=== PATIENT | male | born 1975 | race Caucasian/White ===

== ENCOUNTER 2016-12-24 09:48 | Emergency (ER) | payer OTHER ==
[2016-12-24 10:00] VITALS: BMI 26.4
--- NOTE | 2016-12-24 10:53 | PDOC ---
History of Present Illness - General History Source: Patient Exam Limitations: No Limitations - History of Present Illness Initial Comments: 12/24/16 11:03 The patient is a 41 year old male with past medical history of seizure disorder who presents to the ED s/p seizure like activity that was witnessed yesterday. As per patients family, the patient was found in bed clenched up, biting his tongue and had urinary incontinence as well which this episode lasted a couple of minutes. Following the episode, the patient was noted to be postictal for about 2 hours following the episode. Since then, the patient has experienced decreased sensation in his right upper/lower extremities. The patient states he stopped taking his Keppra two months ago and had experienced a questionable seizure two months ago which he did not follow up with. He also complains of becoming short of breath when lying down which has been occurring for the past two months. The patient denies any fever, chills, nausea, vomiting, diarrhea, cough, chest pain, or urinary symptoms. <Hui Mayers - Last Filed: 12/24/16 11:54> - General History Source: Patient, Family Exam Limitations: No Limitations <Luca Mena - Last Filed: 12/27/16 08:18> - General Chief Complaint: Shortness of Breath Stated Complaint: HEADACHES Time Seen by Provider: 12/24/16 10:25 Past History <Hui Mayers - Last Filed: 12/24/16 11:54> - Past Medical History Seizures: Yes - Immunization History Immunization Up to Date: Yes - Psycho/Social/Smoking Cessation Hx Anxiety: No Suicidal Ideation: No Smoking History: Never smoked Have you smoked in the past 12 months: No Information on smoking cessation initiated: No Hx Alcohol Use: No Drug/Substance Use Hx: No Substance Use Type: None Hx Substance Use Treatment: No <Luca Mena - Last Filed: 12/27/16 08:18> - Past Medical History Allergies/Adverse Reactions: Allergies Allergy/AdvReac Type Severity Reaction Status Date / Time No Known Allergies Allergy Verified 12/24/16 10:00 Home Medications: Ambulatory Orders Levetiracetam [Keppra -] 750 mg PO BID #60 tablet 12/24/16 Levetiracetam [Keppra -] 750 mg PO BID #84 tablet 12/24/16 Naproxen [Naprosyn -] 500 mg PO BID PRN #20 tablet 12/24/16 Review of Systems - Review of Systems Able to Perform ROS?: Yes Comments:: 12/24/16 11:03 GENERAL/CONSTITUTIONAL: No fever or chills. No weakness. HEAD, EYES, EARS, NOSE AND THROAT: No change in vision. No ear pain or discharge. No sore throat. CARDIOVASCULAR: No chest pain or shortness of breath. RESPIRATORY: Present: SOB while laying down No cough, wheezing, or hemoptysis. GASTROINTESTINAL: No nausea, vomiting, diarrhea or constipation. GENITOURINARY: No dysuria, frequency, or change in urination. MUSCULOSKELETAL: No joint or muscle swelling or pain. No neck or back pain. SKIN: No rash NEUROLOGIC: Present: seizure No headache, vertigo, or change in strength/sensation. ENDOCRINE: No increased thirst. No abnormal weight change. HEMATOLOGIC/LYMPHATIC: No anemia, easy bleeding, or history of blood clots. ALLERGIC/IMMUNOLOGIC: No hives or skin allergy. All Other Systems: Reviewed and Negative <Hui Mayers - Last Filed: 12/24/16 11:54> *Physical Exam - Vital Signs Last Vital Signs Temp Pulse Resp BP Pulse Ox 98.2 F 83 18 135/81 98 12/24/16 09:54 12/24/16 09:54 12/24/16 09:54 12/24/16 09:54 12/24/16 10:58 - Physical Exam Comments: 12/24/16 11:04 GENERAL: Awake, alert, and fully oriented, in no acute distress HEAD: No signs of trauma EYES: PERRLA, EOMI, sclera anicteric, conjunctiva clear ENT: Auricles normal inspection, hearing grossly normal, nares patent, oropharynx clear without exudates. Moist mucosa NECK: Normal ROM, supple, no lymphadenopathy, JVD, or masses LUNGS: Breath sounds equal, clear to auscultation bilaterally. No wheezes, and no crackles HEART: Regular rate and rhythm, normal S1 and S2, no murmurs, rubs or gallops ABDOMEN: Soft, nontender, normoactive bowel sounds. No guarding, no rebound. No masses EXTREMITIES: Normal range of motion, no edema. No clubbing or cyanosis. No cords, erythema, or tenderness NEUROLOGICAL: Decreased sensation of RUE and RLE, 5/5 strength bilaterally upper and lower extremities, no pronator drift, No dysmetria, dysarthria. Cranial nerves II through XII grossly intact. Normal speech, normal gait SKIN: Warm, Dry, normal turgor, no rashes or lesions noted. <Hui Mayers - Last Filed: 12/24/16 11:54> - Vital Signs Last Vital Signs Temp Pulse Resp BP Pulse Ox 98.2 F 83 18 135/81 97 12/24/16 09:54 12/24/16 09:54 12/24/16 09:54 12/24/16 09:54 12/24/16 09:54 - Physical Exam Comments: 12/27/16 08:18 CORRECTION TO SCRIBE NOTE: CN II-XII intact, not grossly intact. <Luca Mena - Last Filed: 12/27/16 08:18> NIH Stroke Scale - Initial Evaluation Level of consciousness: Alert Ask patient the month and their age: Answers both correctly Ask patient to open & close eyes; make fist and let go: Obeys both correctly Best gaze (horizontal eye movement): Normal Visual field testing: No visual field loss Facial paresis (Show teeth/raise eyebrows/close eyes tight): Normal symmetrical movement Motor Function: Left Arm: Normal Motor Function: Right Arm: Normal (extends arm 90 (or 45) degrees for 10 seconds without drift Motor Function: Left Leg: Normal (extends leg 30 degrees for 5 seconds without drift) Motor Function: Right Leg: Normal (extends leg 30 degrees for 5 seconds without drift) Limb Ataxia: No ataxia Sensory(Use pinprick test arms,legs,trunk,face/side to side): Mild to moderate decrease in sensation Best language (Describe picture, name items, read sentences): No Aphasia Dysarthria (read several words): Normal articulation Extinction and Inattention: No abnormality - Total Score NIH Stroke Scale Score: 1 <Luca Mena - Last Filed: 12/27/16 08:18> Heart Score/ECG Review #1 ECG reviewed & interpreted by me at: 11:00 12/24/16 11:47 NSR 62, no std/kendall, TWI III, normal axis, normal intervals, QTC 416 msec <Luca Mena - Last Filed: 12/27/16 08:18> Critical Care Time/MDM Note - Medical Decision Making Note: 12/24/16 11:06 Documentation prepared by Hui Mayers, acting as medical biller coder for Luca Mena MD. 12/24/16 11:[address] as reviewed by Dr. Russell reports no acute intracranial pathology. 12/24/16 11:54 Chest X-ray as reviewed by Dr. Russell reports no active pulmonary disease. <Hui Mayers - Last Filed: 12/24/16 11:54> - Medical Decision Making Note: 12/24/16 10:50 A portion of this note was documented by scribe services under my direction. I have reviewed the details of the note, within reason, and agree with the documentation with the following case summary and management plan written by me. Patient treated in the ED. Nursing notes are reviewed and incorporated into the medical decision-making. Vital signs reviewed. Peripheral IV access obtained by the nurse, laboratory studies are drawn and sent, reviewed and interpreted by myself. Vital Signs Temp Pulse Resp BP Pulse Ox 98.2 F 83 18 135/81 97 12/24/16 09:54 12/24/16 09:54 12/24/16 09:54 12/24/16 09:54 12/24/16 09:54 41-year-old male with history of seizure disorder previously on 750 mg of Keppra twice a day presents to the emergency department for 2 complaints. Patient states that he self discontinued himself from Keppra 2 months ago stating that he has not had a seizure. There is a question we'll seizure episode 2 months ago which she did not follow up with since he discontinued medications. Yesterday, patient's family noted that he was in bed clenching with tongue biting and urinary incontinence and seizure-like behavior that lasted for several minutes. He appeared postictal for 2 hours afterwards. He denies any headaches or shortness of breath but now complains of right upper extremity and right lower extremity decreased sensation. Denies other neurological symptoms. Patient also endorses that when he sleeps that he feels short of breath and this has been occurring for last 2 months. But this occurs when his neck is flexed onto his chest. Denies chest pain. I suspect the patient likely had a seizure but given the persistence of neurological symptoms, we'll obtain a head CT and consult neurology. Patient shortness of breath may be more mechanical than coronary or pulmonary. However, we'll obtain an EKG and a chest x-ray. Observe and reassess. 12/24/16 13:09 CBC, BMP 12/24/16 10:45 12/24/16 10:45 CMP Sodium 140 mmol/L (136-145) 12/24/16 10:45 Potassium 4.2 mmol/L (3.5-5.1) 12/24/16 10:45 Chloride 103 mmol/L (98-107) 12/24/16 10:45 Carbon Dioxide 32 mmol/L (21-32) 12/24/16 10:45 Anion Gap 5 (8-16) L 12/24/16 10:45 BUN 13 mg/dL (7-18) D 12/24/16 10:45 Creatinine 0.8 mg/dL (0.7-1.3) 12/24/16 10:45 Creat Clearance w eGFR > 60 (>60) 12/24/16 10:45 Random Glucose 95 mg/dL (74-106) 12/24/16 10:45 Calcium 8.6 mg/dL (8.5-10.1) 12/24/16 10:45 Total Bilirubin 0.8 mg/dL (0.2-1.0) D 12/24/16 10:45 AST 52 U/L (15-37) H D 12/24/16 10:45 ALT 39 U/L (12-78) 12/24/16 10:45 Alkaline Phosphatase 70 U/L (45-117) 12/24/16 10:45 Creatine Kinase 1821 IU/L (39-308) H D 12/24/16 10:45 CK-MB (CK-2) 11.095 ng/ml (0.5-3.6) H 12/24/16 10:45 CK-MB (CK-2) Rel Index 0.6 % (0.0-5.0) 12/24/16 10:45 Troponin I < 0.02 ng/ml (0.00-0.05) 12/24/16 10:45 Total Protein 7.0 g/dl (6.4-8.2) 12/24/16 10:45 Albumin 3.7 g/dl (3.4-5.0) 12/24/16 10:45 12/24/16 13:[address] and chest xray reviewed. no acute findings. I had spoken to and discussed the case with Dr. Meyer. Though somewhat atypical , the numbness may potentially represent Rehan's paralysis. He recommends that we initiate his prior dosage of 750 mg Keppra twice a day. He recommends the patient follow-up in his office as an outpatient. I discussed this option with the patient agrees with the plan. Patient feels comfortable going home. Discharge diagnosis: Seizure I discussed the physical exam findings, ancillary test results and final diagnoses with the patient. I answered all of the patient's questions. The patient was satisfied with the care received and felt comfortable with the discharge plan and treatment plan. The patient will call their primary care physician within 24 hours to arrange follow-up and will return to the Emergency Department with any new, persistant or worsening symptoms. <Luca Mena - Last Filed: 12/27/16 08:18> Discharge Disposition <Hui Mayers - Last Filed: 12/24/16 11:54> - Discharge Dispostion Admit: No <Luca Mena - Last Filed: 12/27/16 08:18> - Diagnosis Seizure - Discharge Dispostion Disposition: HOME - Prescriptions Prescriptions: Levetiracetam [Keppra -] 750 mg PO BID #84 tablet Levetiracetam [Keppra -] 750 mg PO BID #60 tablet Naproxen [Naprosyn -] 500 mg PO BID PRN #20 tablet PRN Reason: Pain - Referrals Referrals: Jose Kong MD [Non Staff, Medical] - Yash Meyer DO [Staff Physician] - - Patient Instructions Printed Discharge Instructions: DI for Seizure Disorder -- Adult Additional Instructions: Please take 750 mg Keppra twice a day. Follow-up with the neurologist. It is very important that you make an appointment and schedule it. Call today.
[2016-12-24 10:57] LABS: BASOPHIL 1.2 % (0-2.0); MCH 29.6 pg (25.7-33.7); MCHC 34.2 g/dl (32.0-35.9); MEAN CELL VOLUME 86.7 fl (80-96); MEAN PLT VOLUME 8.2 fl (7.5-11.1); NEUTROPHILS 62.7 % (42.8-82.8); PLATELET COUNT 293 K/MM3 (134-434); RDW 12.6 % (11.9-15.9); WHITE BLOOD COUNT 8.5 K/mm3 (4.0-10.0)
[2016-12-24 11:20] LABS: ALBUMIN 3.7 g/dl (3.4-5.0); ANION GAP 5 (8-16); BILIRUBIN,TOTAL 0.8 mg/dL (0.2-1.0); CALCIUM 8.6 mg/dL (8.5-10.1); CO2 32 mmol/L (21-32); CREATININE 0.8 mg/dL (0.7-1.3); GLUCOSE,RANDOM 95 mg/dL (74-106); SGOT/AST 52 U/L (15-37); SGPT/ALT 39 U/L (12-78)
[2016-12-24 11:31] LABS: ALK PHOS 70 U/L (45-117); TROPONIN I < 0.02 ng/ml (0.00-0.05)
[2016-12-24 12:07] LABS: CK INDEX FOR DOBBS 0.6 % (0.0-5.0)
--- NOTE | 2016-12-24 12:26 | EKG ---
Test Reason : Blood Pressure : / mmHG Vent. Rate : 062 BPM Atrial Rate : 062 BPM P-R Int : 182 ms QRS Dur : 090 ms QT Int : 412 ms P-R-T Axes : 036 027 023 degrees QTc Int : 418 ms NORMAL SINUS RHYTHM NORMAL ECG WHEN COMPARED WITH ECG OF 09-MAY-2016 19:45, NO SIGNIFICANT CHANGE WAS FOUND CORELATE CLINICALLY. Confirmed by LIVE BLANDON MD ([id number]) on 12/24/2016 12:26:07 PM Referred By: Confirmed By:LIVE BLANDON MD
[2016-12-24] MEDS ORDERED: KETOROLAC TROMETHAMINE 30 MG/1 ML VIAL IVPUSH ONE (13:08)
[2016-12-24] MEDS ORDERED: levETIRAcetam 500 MG TABLET (FP) PO ONE (13:08)
[2016-12-24] MEDS ORDERED: KETOROLAC TROMETHAMINE 30 MG/1 ML VIAL ONE (13:16)
[2016-12-24 13:32] VITALS: BP 120/71; PULSE 81; TEMP 98.1
== END 2016-12-24 13:32 | disposition home or self-care (01) ==
LOC: JER 09:48
PROC: 3E0333Z Introduction of Anti-inflammatory into Peripheral Vein, Percutaneous Approach (ICD-10-PCS; principal; 2016-12-24)
DX: G40.909 Epilepsy, unspecified, not intractable, without status epilepticus (principal); Z91.14 Patient's other noncompliance with medication regimen
CPT/HCPCS: 36415; 70450-TC; 71010-TC; 80053; 82550; 82553; 84484; 85025; 93005; 93010; 96374; 99283-25

== ENCOUNTER 2017-07-01 02:12 | Inpatient (IN) | payer BC, OTHER ==
[2017-07-01 02:29] VITALS: BMI 23.0
--- NOTE | 2017-07-01 03:16 | PDOC ---
History of Present Illness - General Chief Complaint: Back Pain Stated Complaint: BACK PAIN - History of Present Illness Initial Comments: Mr Reyes is a pleasant 42yo [place] M with a PMHx of epilepsy who presents w / lower back pain. The pain is located in the paraspinal region and radiates down into the gluteal area bilaterally. The pain started a couple of hours ago while the patient was essentially resting. Progressed gradually. Currently the patient has pain with bilateral leg flexion. He has taken a one time ?unknown dose of Tylenol without relief. He denies localized trauma. Denies heavy lifting. 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 Denies dysuria, frequency, urgency, personal or family history of kidney disease. Denies neurologic complaints such as incontinence, numbness/tingling, weakness. Past History - Past Medical History Allergies/Adverse Reactions: Allergies Allergy/AdvReac Type Severity Reaction Status Date / Time No Known Allergies Allergy Verified 07/01/17 02:29 Home Medications: Ambulatory Orders Levetiracetam [Keppra -] 750 mg PO BID #84 tablet 12/24/16 Seizures: Yes - Immunization History Immunization Up to Date: Yes - Suicide/Smoking/Psychosocial Hx Smoking History: Never smoked Have you smoked in the past 12 months: No Information on smoking cessation initiated: No Hx Alcohol Use: No Drug/Substance Use Hx: No Substance Use Type: None Hx Substance Use Treatment: No *Physical Exam - Vital Signs Last Vital Signs Temp Pulse Resp BP Pulse Ox 98.4 F 80 18 136/82 100 07/01/17 02:28 07/01/17 02:28 07/01/17 02:28 07/01/17 02:28 07/01/17 02:28 - Physical Exam Comments: GEN: AAOx3, NAD, Lying in bed. Pt refused to flex back and walk due to pain HEENT: PERRLA, EOMi CV: S1, S2, RRR LUNG: Anterior lungs are clear bilaterally ABD: Soft, NT, no suprapubic tenderness MSK: 5/5 muscular strength. Active leg flexion bilaterally elicits lower back tenderness. No spinal tenderness NEURO: CN 2-12 intact, no sensation or MSK deficits Medical Decision Making - Medical Decision Making 42yo M who presents w/ bilateral LBP. Likely musculoskeletal due to the distribution of the pain. Will rule out urinary causes. Will give Percocet and reassess. Will hold off on imaging, unlikely fracture. 07/01/17 06:36 Patient has received Percocet x2, Motrin 800mg x1, Valium 5mg x1. Pain is unchanged. Pt not able to sit up or walk. We will rule out unlikely causes of lower back pain such as intra-abdominal/retroperitoneal causes w/ CT abd/pelvis w/ contrast. If patient is still unable to ambulate with multiple medications, will consider admission. *DC/Admit/Observation/Transfer Diagnosis at time of Disposition: Lower back pain Qualifiers: Chronicity: acute Back pain laterality: bilateral Sciatica presence: without sciatica Qualified Code(s): M54.5 - Low back pain - Referrals Referrals: Sarah Uribe MD [Primary Care Provider] - - Patient Instructions - Post Discharge Activity
--- NOTE | 2017-07-01 03:56 | PDOC ---
Attending Attestation - Resident Resident Name: Jesse Castano - ED Attending Attestation I have performed the following: I have examined & evaluated the patient, The case was reviewed & discussed with the resident, I agree w/resident's findings & plan, Exceptions are as noted - HPI HPI: 07/01/17 03:54 42yoM presents w/ gradual onset of bilateral lumbar area pain radiating to the gluteal muscles x last night. Did not attempt any pain control at home. Pain is not colicky or intermittent, never had this before. pmhx per res note psh per res note allerg nkda Vital Signs - 24 hr 07/01/17 02:28 Temperature 98.4 F Pulse Rate 80 Respiratory 18 Rate Blood Pressure 136/82 O2 Sat by Pulse 100 Oximetry (%) NAD RRR CTABL mild diffuse tendreness lateral lumbar areas b/l gait WNL. 42yoM w/ acute musculoskeletal back pain - urine - pain control - DC. - Physicial Exam PE: 07/01/17 03:56 see above - Medical Decision Making 07/01/17 03:56 see above
[2017-07-01] MEDS ORDERED: IBUPROFEN 400 MG TABLET (FP) PO ONE ×2 (04:11→04:16)
[2017-07-01 05:01] LABS: URINE APPEARANCE CLEAR; URINE BILIRUBIN NEGATIVE (NEGATIVE); URINE BLOOD NEGATIVE (NEGATIVE); URINE COLOR YELLOW; URINE GLUCOSE (UA) NEGATIVE (NEGATIVE); URINE KETONE NEGATIVE (NEGATIVE); URINE LEUK ESTERASE NEGATIVE (NEGATIVE); URINE NITRITE NEGATIVE (NEGATIVE); URINE PROTEIN NEGATIVE (NEGATIVE); URINE UROBILINOGEN NEGATIVE mg/dL (0.2-1.0)
[2017-07-01] MEDS ORDERED: diazePAM 5 MG TABLET PO ONE (05:24)
[2017-07-01] MEDS ORDERED: diazePAM 5 MG TABLET ONE (05:45)
[2017-07-01 07:04] LABS: EOS % 7.5 % (0-4.5); HEMATOCRIT 44.2 % (35.4-49); HEMOGLOBIN 14.6 GM/dL (11.7-16.9); LYMPH % 25.4 % (8-40); MCHC 32.9 g/dl (32.0-35.9); MEAN CELL VOLUME 88.2 fl (80-96); MEAN PLT VOLUME 8.6 fl (7.5-11.1); MONO % 14.5 % (3.8-10.2); NEUT % 52.6 % (42.8-82.8); PLATELET COUNT 300 K/MM3 (134-434); RBC 5.01 M/mm3 (4.00-5.60); RDW 12.7 % (11.9-15.9)
[2017-07-01 07:30] LABS: ALBUMIN 3.6 g/dl (3.4-5.0); ALK PHOS 84 U/L (45-117); ANION GAP 6 (8-16); BILIRUBIN,TOTAL 0.5 mg/dL (0.2-1.0); BLOOD UREA NITROGEN 17 mg/dL (7-18); CALCIUM 8.2 mg/dL (8.5-10.1); CHLORIDE 105 mmol/L (98-107); CO2 29 mmol/L (21-32); CREATININE 0.7 mg/dL (0.7-1.3); GLUCOSE,RANDOM 85 mg/dL (74-106); POTASSIUM 4.2 mmol/L (3.5-5.1); SGOT/AST 19 U/L (15-37); SGPT/ALT 34 U/L (12-78); SODIUM 140 mmol/L (136-145); TOT PROT 6.5 g/dl (6.4-8.2)
--- NOTE | 2017-07-01 07:33 | PDOC ---
*Physical Exam - Vital Signs Last Vital Signs Temp Pulse Resp BP Pulse Ox 98.4 F 80 18 136/82 100 07/01/17 02:28 07/01/17 02:28 07/01/17 02:28 07/01/17 02:28 07/01/17 02:28 - Physical Exam Comments: 07/01/17 07:33 GENERAL: Awake, alert, and fully oriented, in no acute distress HEAD: No signs of trauma, normocephalic, atraumatic EYES: PERRLA, EOMI, sclera anicteric, conjunctiva clear ENT: Hearing grossly normal, nares patent, oropharynx clear without exudates. Moist mucosa NECK: Normal ROM, no JVD, or masses LUNGS: No distress, speaks full sentences, clear to auscultation bilaterally HEART: Regular rate and rhythm, normal S1 and S2, no murmurs, rubs or gallops, peripheral pulses normal and equal bilaterally. ABDOMEN: Soft, nontender, normoactive bowel sounds. No guarding, no rebound. No masses EXTREMITIES : Normal inspection, Normal range of motion, no edema. No clubbing or cyanosis. NEUROLOGICAL: Cranial nerves II through XII grossly intact. Normal speech, normal gait, no focal sensorimotor deficits SKIN: Warm, Dry, normal turgor, no rashes or lesions noted. ED Treatment Course - LABORATORY CBC & Chemistry Diagram: 07/01/17 06:39 07/01/17 06:39 - ADDITIONAL ORDERS Additional order review: Laboratory Results 07/01/17 04:52 Urine Color Yellow Urine Appearance Clear Urine pH 5.0 Ur Specific [place] 1.027 Urine Protein Negative Urine Glucose (UA) Negative Urine Ketones Negative Urine Blood Negative Urine Nitrite Negative Urine Bilirubin Negative Urine Urobilinogen Negative Ur Leukocyte Esterase Negative 07/01/17 06:39 RBC 5.01 MCV 88.2 MCHC 32.9 RDW 12.7 MPV 8.6 Neutrophils % 52.6 Lymphocytes % 25.4 Monocytes % 14.5 H Eosinophils % 7.5 H D Basophils % 0.0 - Medications Given in the ED: ED Medications Discontinued Medications Generic Name Dose Route Start Last Admin Trade Name Freq PRN Reason Stop Dose Admin Diazepam 5 mg 07/01/17 05:24 07/01/17 05:50 Valium - PO 07/01/17 05:25 5 mg ONCE ONE Administration Ibuprofen 800 mg 07/01/17 04:11 07/01/17 04:23 Motrin - PO 07/01/17 04:12 800 mg ONCE ONE Administration Oxycodone/Acetaminophen 2 combo 07/01/17 03:03 07/01/17 03:10 Percocet 5/325 - PO 07/01/17 03:04 2 combo ONCE ONE Administration Medical Decision Making - Medical Decision Making 07/01/17 07:30 Mr Reyes is a 42yo M with a h/ o epilepsy who presents with radiating, lumbar paraspinal back pain 2 hours [employer]. Pain worsened w/ bilateral leg flexion. Denies trauma or heavy lifting. Denies CP, SOB, N/V, F/C, dysuria, frequency, urgency, weakness, sensory changes, urinary complaints, or bowel/ abdominal complaints. Patient hemodynamically stable with no focal deficits on physical exam. Received handoff from Dr. Castano. ED Course noteable for Percocet x2, Motrin 800mg x1, Valium 5mg x1, with continued/unresolved pain. Pt. complains that he is not able to sit up or walk. CT AP pending. Possible admission for pain management/intractable back pain. ED Course: CT AP: Right renal cyst w/no evidence of hydroureteronephrosis, Ileus, and non occlusive splenic thrombus. 07/01/17 09:39 Back Pain not improved. Patient to be admitted to med/surg obs for further management. *DC/Admit/Observation/Transfer Diagnosis at time of Disposition: Lower back pain Qualifiers: Chronicity: acute Back pain laterality: bilateral Sciatica presence: without sciatica Qualified Code(s): M54.5 - Low back pain - Referrals Referrals: Sarah Uribe MD [Primary Care Provider] - - Patient Instructions - Post Discharge Activity
--- NOTE | 2017-07-01 11:08 | HP ---
CHIEF COMPLAINT: back pain PCP: Dr. Sarah Monzon ([address] [facility] - [phone]) HISTORY OF PRESENT ILLNESS: 42 y/o M w/PMH of epilepsy presents to the ER with back pain that started at approximately 4:30 PM yesterday afternoon without any inciting factors. Pt states it started on his left lower back and progressed to in a band like fashion where his belt would be to his left lower back to his lower back and to his right lower back and the intensity of the pain increased to 10/10 in an unknown period of time but pt thinks it took approximately 2 hours for the pain to reach 10/10 and has been constant since then. Pain is worsened with movement and pt has difficulty walking due to pain. This is the first time this has happened to him. He tried taking tylenol but it did not bring any relief. Pt denies any trauma or heavy lifting. He denies any parasthesias, focal weakness, loss of sensation, bowel or bladder incontinence, headache, neck pain, fevers, chills, nausea, vomiting, chest pain, sob, abd pain, muscle spasms, blood in urine, blood in stool, lower extremity edema, constipation, recent travel, sick contacts. Last BM was yesterday at approximately 3 pm and stool was normal at the time. Despite being given ibuprofen, percocet x2, valium in ER pt states pain is only slightly improved. ER course was notable for: (1) Ibuprofen 800mg, Oxy/Tylenol 5-325 x2. Valium 5 mg (2) CT Abd/Pelvis w/Contrast (3) Recent Travel: denies PAST MEDICAL HISTORY: epilepsy PAST SURGICAL HISTORY: none Social History: Smoking:denies Alcohol:rarely (1 beer at large social event) Drugs: denies Family History: Mother: HTN. Denies any cancer history in family Allergies No Known Allergies Allergy (Verified 07/01/17 02:29) HOME MEDICATIONS: Home Medications Medication Instructions Recorded Levetiracetam [Keppra -] 750 mg PO BID #84 tablet 12/24/16 REVIEW OF SYSTEMS CONSTITUTIONAL: Absent: fever, chills HEENT: Absent: rhinorrhea, nasal congestion CARDIOVASCULAR: Absent: chest pain, peripheral edema RESPIRATORY: Absent: cough, shortness of breath, dyspnea with exertion GASTROINTESTINAL: Absent: abdominal pain, nausea, vomiting, diarrhea, constipation, melena, hematochezia GENITOURINARY: Absent: dysuria, hematuria MUSCULOSKELETAL: +back pain, band like across back where belt sits. Absent: neck pain NEUROLOGIC: Absent: headache, focal weakness or paresthesias, bladder or bowel incontinence PHYSICAL EXAMINATION Vital Signs - 24 hr 07/01/17 07/01/17 02:28 07:52 Temperature 98.4 F Pulse Rate 80 Pulse Rate [ 80 Left] Respiratory 18 16 Rate Blood Pressure 136/82 Blood Pressure 115/80 [Arm] O2 Sat by Pulse 100 96 Oximetry (%) GENERAL: Awake, alert, and fully oriented, unable to sit up in bed due to pain. HEAD: Normal with no signs of trauma. EYES: extraocular movements intact, sclera anicteric, conjunctiva clear. No lid lag. EARS, NOSE, THROAT: Ears normal, nares patent NECK: Normal range of motion, supple LUNGS: Breath sounds equal, clear to auscultation bilaterally. No wheezes, and no crackles. No accessory muscle use. HEART: Regular rate and rhythm, normal S1 and S2 without murmur, rub or gallop. ABDOMEN: Soft, nontender, not distended, normoactive bowel sounds, no guarding, no rebound, no masses. MUSCULOSKELETAL: Pain in back with straight leg raise at approx 45 degrees bilaterally. Kernigs negative. Mild pain with palpation at left lower back/ flank where belt is. no muscle spasms palpated on lower back. UPPER EXTREMITIES: No peripheral edema. LOWER EXTREMITIES: warm, well-perfused. No calf tenderness. No peripheral edema. NEUROLOGICAL: B/L sensation equal and intact to light touch in lower extremities. Normal speech. Gait not observed. PSYCHIATRIC: Cooperative. Good eye contact. Appropriate mood and affect. SKIN: Warm, dry Laboratory Results - last 24 hr 07/01/17 07/01/17 07/01/17 04:52 06:39 06:39 WBC 10.0 RBC 5.01 Hgb 14.6 Hct 44.2 MCV 88.2 MCH 29.0 MCHC 32.9 RDW 12.7 Plt Count 300 MPV 8.6 Neutrophils % 52.6 Lymphocytes % 25.4 Monocytes % 14.5 H Eosinophils % 7.5 H D Basophils % 0.0 Sodium 140 Potassium 4.2 Chloride 105 Carbon Dioxide 29 Anion Gap 6 L BUN 17 D Creatinine 0.7 Creat Clearance w eGFR > 60 Random Glucose 85 Calcium 8.2 L Total Bilirubin 0.5 D AST 19 D ALT 34 Alkaline Phosphatase 84 Total Protein 6.5 Albumin 3.6 Urine Color Yellow Urine Appearance Clear Urine pH 5.0 Ur Specific [place] 1.027 Urine Protein Negative Urine Glucose (UA) Negative Urine Ketones Negative Urine Blood Negative Urine Nitrite Negative Urine Bilirubin Negative Urine Urobilinogen Negative Ur Leukocyte Esterase Negative Imaging: CT abd/pelvis w/contrast 07/01/17: Impression: 1. Tiny R renal cysts. No evidence of hydroureteronephrosis or stones bilaterally. 2. Linear filling defect in the L splenic vein suggestive of non-occulsive thrombus. 3. Fluid filled slightly dilated mid and distal bowel loops likely secondary to ileus. CLose f/u needed to r/o low-grade obstruction 4. No evidence of acute diverticulitis ASSESSMENT/PLAN: 42 y/o M w/PMH of epilepsy presents to the ER with back pain. Admitted for observation due to intractable back pain. -Intractable back pain -Pt with back pain despite ibuprofen 800 mg, percocet 5/325 x2, valium 5 mg po in ER -CT abd/pelvis does not show any etiology of back pain -Control pain with morphine 2mg iv q4h. Downgrade to PO meds when possible. -cyclobenzaprine 10 mg PO q8h PRN for pain. Will give one dose now. -Neuro checks for LE sensation, strength, and bowel/bladder incontinence -Will get Pelvis, Lumbar/Sacral XR for now. Consider MRI back/lumbar spine if no improvement -Physical Therapy -Hx of epilepsy -c/w keppra 750 mg po bid -DVT ppx -Heparin 5000 units SQ TID -FEN -No fluids -monitor electrolytes, replete as needed. -Regular diet -Dispo: Monitor in obs on m/s Visit type - Emergency Visit Emergency Visit: Yes ED Registration Date: 07/01/17 Care time: The patient presented to the Emergency Department on the above date and was hospitalized for further evaluation of their emergent condition. - New Patient This patient is new to me today: Yes Date on this admission: 07/01/17 - Critical Care Critical Care patient: No
[2017-07-01 12:06] LABS: MAGNESIUM 2.1 mg/dL (1.8-2.4); PHOSPHOROUS 4.9 mg/dL (2.5-4.9)
[2017-07-01] MEDS ORDERED: MORPHINE SULFATE 10 MG/1 ML *VIAL IVPUSH PRN (12:09)
[2017-07-01] MEDS ORDERED: CYCLOBENZAPRINE HCL 10 MG TABLET (FP) PO PRN (12:10)
--- NOTE | 2017-07-01 12:13 | PN ---
Teaching Attending Note Name of Resident: Tommy Moore ATTENDING PHYSICIAN STATEMENT I saw and evaluated the patient. I reviewed the resident's note and discussed the case with the resident. I agree with the resident's findings and plan as documented. SUBJECTIVE: This is a 42 year old man with a history of seizure disorder who comes to the ER complaining of back pain since yesterday afternoon. The pain started in his left lower back and then progressed across his lower back. It does not radiate down either leg. He has no numbness or weakness of his legs. He has been having difficulty walking. He has no history of back pain. He has not been doing any heavy lifting or other strenuous activity. OBJECTIVE: Vital Signs Period Temp Pulse Resp BP Sys/Madrid Pulse Ox Last 24 Hr 98.4 F 80-80 16-18 115-136/80-82 96-100 HEART: S1S2, RRR LUNGS: Clear ABDOMEN: Soft, non-tender, non-distended, normal BS EXTREMITIES: No edema. Straight leg raise (+) at 45 deg bilaterally BACK: No spinal/paraspinal tenderness. (+) tenderness over left SI joint Laboratory Tests 07/01/17 07/01/17 07/01/17 04:52 06:39 06:39 WBC 10.0 RBC 5.01 Hgb 14.6 Hct 44.2 MCV 88.2 MCH 29.0 MCHC 32.9 RDW 12.7 Plt Count 300 MPV 8.6 Neutrophils % 52.6 Lymphocytes % 25.4 Monocytes % 14.5 H Eosinophils % 7.5 H D Basophils % 0.0 Sodium 140 Potassium 4.2 Chloride 105 Carbon Dioxide 29 Anion Gap 6 L BUN 17 D Creatinine 0.7 Creat Clearance w eGFR > 60 Random Glucose 85 Calcium 8.2 L Phosphorus 4.9 D Magnesium 2.1 Total Bilirubin 0.5 D AST 19 D ALT 34 Alkaline Phosphatase 84 Total Protein 6.5 Albumin 3.6 Urine Color Yellow Urine Appearance Clear Urine pH 5.0 Ur Specific [place] 1.027 Urine Protein Negative Urine Glucose (UA) Negative Urine Ketones Negative Urine Blood Negative Urine Nitrite Negative Urine Bilirubin Negative Urine Urobilinogen Negative Ur Leukocyte Esterase Negative Home Medications Medication Instructions Recorded Levetiracetam [Keppra -] 750 mg PO BID #84 tablet 12/24/16 ASSESSMENT AND PLAN: This is a 42 year old man with a history of seizure disorder who presented to the ED with acute onset of low back pain yesterday. 1. Acute low back pain, possible sacroiliitis - Pain control with NSAIDs, muscle relaxant - Physical therapy - X-rays of LS-spine, pelvis 2. Seizure disorder - Estefania Randhawa
[2017-07-01] MEDS ORDERED: CYCLOBENZAPRINE HCL 10 MG TABLET (FP) PO ONE (12:30)
[2017-07-01] MEDS: HEPARIN NA (PORCINE) 5,000 UNITS/ML 1ML VIAL SQ SCH ×2 (13:59→21:17)
[2017-07-01] MEDS ORDERED: FLU VACCINE QUAD 60 MCG/0.5 ML (MDV 17-18) IM ONE (15:32)
[2017-07-01] MEDS: levETIRAcetam 250 MG TABLET (FP) PO SCH (21:16)
[2017-07-02] MEDS: HEPARIN NA (PORCINE) 5,000 UNITS/ML 1ML VIAL SQ SCH ×3 (05:48→22:58)
[2017-07-02] MEDS: levETIRAcetam 250 MG TABLET (FP) PO SCH ×2 (09:48→22:56)
[2017-07-02] MEDS ORDERED: DOCUSATE SODIUM 100 MG CAPSULE (FP) PO PRN (10:02)
[2017-07-02] MEDS ORDERED: SENNOSIDES 8.6MG TABLET (FP) PO PRN ×2 (10:05→19:55)
[2017-07-02] MEDS ORDERED: METHYL SALICYLATE/MENTHOL OINT 30 GM TUBE TP SCH (10:15)
--- NOTE | 2017-07-02 10:26 | CON.GI ---
Consult Consult Specialty:: GI Reason for Consultation:: Splenic vein thrombosis, accidental finding - History of Present Illness History of Present Illness: [facility] [employer] #[id number] A 42 yom with hx of sizujose, on keppra admitted with severe lower back pain radiating to b/l LE w/o obvious neurological deficits. No trauma, or significant physical ectivities reported. lumbar and hip XR revealed no abnormalities. CT A/P with contrast revealed mild ileus, divetiucolosis, and non -obstructive splenic vein thrombosis. The patient reports no GI-related personal or family history. Denies heavy alcohol use, denies liver, pancrease problems. Denies weight loss, jaundice, fluctuating abdominal girth, altered bowels, blood clots. excessive bruising, bleeding. Denies chronic NSAIDs, other OTC meds, or herbs. Pt's ?mother at bedside - History Source History Provided By: Patient, Medical Record Limitations to Obtaining History: Language Barrier - Past Medical History Gastrointestinal: No: Ascites, Cancer, Constipation, Crohn's Disease, Diverticulitis, Diverticulosis, Esophageal Varices, Gastritis, GERD, GI Bleed, Hemorrhoids, Hiatal Hernia, Inflamatory Bowel Disease, Irritable Bowel Disease, Pancreatitis, Peptic Ulcer Disease, Ulcerative Colitis, Other Hepatobiliary: No: Cirrhosis, Cholelithiasis, Cholecystitis, Choledocholithiasis , Hepatitis A, Hepatitis B, Hepatitis C, Other Heme/Onc: No: Anemia, B12 Deficiency, Bleeding Disorder, Cancer, Current Chemotherapy, Current Radiation Therapy, Hemochromatosis, Hypercoaguable State, Myeloproliferative Synd, Sickle Cell Disease, Sickle Cell Trait, Thrombocytopenia, Other Rheumatology: No: Fibromyalgia, Gout, Lupus, Rheumatoid Arthritis, Sarcoidosis, Vasculitis, Other - Alcohol/Substance Use Hx Alcohol Use: No - Smoking History Smoking history: Never smoked Have you smoked in the past 12 months: No Home Medications - Allergies Allergies/Adverse Reactions: Allergies Allergy/AdvReac Type Severity Reaction Status Date / Time No Known Allergies Allergy Verified 07/01/17 02:29 - Home Medications Home Medications: Ambulatory Orders Levetiracetam [Keppra -] 750 mg PO BID #84 tablet 12/24/16 Family Disease History - Family Disease History Family Disease History: Other: Mother (mild cognitive impairment, kidney stone) Review of Systems Findings/Remarks: As per HPI, H&P Physical Exam-GI Vital Signs: Vital Signs Temperature 98.1 F 07/02/17 06:29 Pulse Rate 66 07/02/17 06:29 Respiratory Rate 20 07/02/17 06:29 Blood Pressure 107/69 07/02/17 06:29 O2 Sat by Pulse Oximetry (%) 96 07/01/17 20:08 Constitutional: Yes: Well Nourished, No Distress, Calm Eyes: Yes: Conjunctiva Clear HENT: Yes: Atraumatic Neck: Yes: Supple Cardiovascular: Yes: Regular Rate and Rhythm Respiratory: Yes: Regular Gastrointestinal Inspection: No: Ascites, Distention ...Auscultate: Yes: Normoactive Bowel Sounds ...Palpate: Yes: Soft. No: Firm/Rigid, Guarding, Mass, Splenomegaly, Tenderness , Tenderness, Epigastium, Tenderness, Rebound Musculoskeletal: Yes: WNL Extremities: Yes: WNL Edema: No Integumentary: Yes: WNL Neurological: Yes: Alert, Oriented Labs: CBC, BMP 07/01/17 06:39 07/01/17 06:39 Laboratory Tests 07/01/17 07/01/17 07/01/17 04:52 06:39 06:39 WBC 10.0 RBC 5.01 Hgb 14.6 Hct 44.2 MCV 88.2 MCH 29.0 MCHC 32.9 RDW 12.7 Plt Count 300 MPV 8.6 Neutrophils % 52.6 Lymphocytes % 25.4 Monocytes % 14.5 H Eosinophils % 7.5 H D Basophils % 0.0 Sodium 140 Potassium 4.2 Chloride 105 Carbon Dioxide 29 Anion Gap 6 L BUN 17 D Creatinine 0.7 Creat Clearance w eGFR > 60 Random Glucose 85 Calcium 8.2 L Phosphorus 4.9 D Magnesium 2.1 Total Bilirubin 0.5 D AST 19 D ALT 34 Alkaline Phosphatase 84 Total Protein 6.5 Albumin 3.6 Urine Color Yellow Urine Appearance Clear Urine pH 5.0 Ur Specific [place] 1.027 Urine Protein Negative Urine Glucose (UA) Negative Urine Ketones Negative Urine Blood Negative Urine Nitrite Negative Urine Bilirubin Negative Urine Urobilinogen Negative Ur Leukocyte Esterase Negative Imaging - Results X-ray: Report Reviewed Cat Scan: Report Reviewed Problem List - Problems (1) Splenic vein thrombosis Code(s): I82.890 - ACUTE EMBOLISM AND THROMBOSIS OF OTHER SPECIFIED VEINS (2) Lower back pain Code(s): M54.5 - LOW BACK PAIN Qualifiers: Chronicity: acute Back pain laterality: bilateral Sciatica presence: without sciatica Qualified Code(s): M54.5 - Low back pain (3) Seizure Code(s): R56.9 - UNSPECIFIED CONVULSIONS Assessment/Plan Significant lower back pain. Accidentally found splenic vein thrombosis w/o on obvious risk factors in the history. May represent idiopathic event, however malignancy, coagulopathy, chronic inflammation, among others, are on differential. No obvious history to suspect hepatic etiology, IBD, pancreatitis, or recurrent colitis/ diverticulitis. No GI symptoms recently, or on this admission. Lumbar and abdomen MRI POLLY, ESR/CRP Viral hep profile, stool hemoccult, AMA, AMS, ALKM-1, PSA, CA19-9, AFP Hem/Onc consultation re additional work up and need for A/C will follow
[2017-07-02] MEDS ORDERED: PANTOPRAZOLE 40 MG TABLET (FP) PO SCH (11:00)
[2017-07-02] MEDS: IBUPROFEN 400 MG TABLET (FP) PO SCH ×3 (11:14→22:56)
[2017-07-02] MEDS ORDERED: CYCLOBENZAPRINE HCL 10 MG TABLET (FP) PO SCH (14:00)
--- NOTE | 2017-07-02 17:35 | PN ---
Teaching Attending Note Name of Resident: Ten Reich ATTENDING PHYSICIAN STATEMENT Time of evaluation: 11:15 AM I saw and evaluated the patient. I reviewed the resident's note and discussed the case with the resident. I agree with the resident's findings and plan as documented. SUBJECTIVE: Patient seen and examined. still with low back pain, reports band like across iliac crest region, reports started as spasm on left flank region that spread in a band like fashion along lower back, more in the left iliac crest/buttock region. no recent trauma or twisting. no leg tingling, numbness, weakness, bowel or urinary complaints. OBJECTIVE: Vital Signs Period Temp Pulse Resp BP Sys/Madrid Pulse Ox Last 24 Hr 97.5 F-98.2 F 66-72 16-20 103-125/57-79 96-96 Intake & Output 06/29/17 06/30/17 07/01/17 07/02/17 23:59 23:59 23:59 23:59 Intake Total 250 Balance 250 Weight 170 lb 0.01 oz general: sitting in bed in no acute distress Musculoskeletal: minimal tenderness over left buttock region (reports more like spasm), no spinal tenderness, SLR bilateral LE 40 degrees with some pain in bilateral buttock region, LE Power 5/5, sensation intact light touch ABdomen: soft, obese, NT throughout, neg Boone's sign, positive bowel sounds Extremities: no edema Active Medications Generic Name Dose Route Start Last Admin Trade Name Freq PRN Reason Stop Dose Admin Cyclobenzaprine HCl 10 mg 07/02/17 14:00 07/02/17 14:08 Flexeril - PO 10 mg TID KEV Administration Docusate Sodium 100 mg 07/02/17 22:00 Colace - PO BID KEV Heparin Sodium (Porcine) 5,000 unit 07/01/17 14:00 07/02/17 14:08 Heparin - SQ 5,000 unit TID KEV Administration Ibuprofen 400 mg 07/02/17 11:00 07/02/17 16:30 Motrin - PO 400 mg TID KEV Administration Levetiracetam 750 mg 07/01/17 22:00 07/02/17 09:48 Keppra - PO Not Given BID KEV Methyl Salicylate 1 applic 07/02/17 10:15 07/02/17 14:08 [place]-Monsivais - TP 1 applic BID KEV Administration Morphine Sulfate 2 mg 07/01/17 12:09 07/01/17 14:28 Morphine Injection - IVPUSH 2 mg Q4H PRN Administration PAIN LEVEL 6-10 Pantoprazole Sodium 40 mg 07/02/17 11:00 07/02/17 11:14 Protonix - PO 40 mg DAILY KEV Administration Senna 2 tab 07/02/17 10:05 Senna - PO HS PRN CONSTIPATION Microbiology 07/01/17 04:52 Urine - Urine Clean Catch Urine Culture - Final NO GROWTH OBTAINED ASSESSMENT AND PLAN: 42 yom with epilepsy with intractable spasmodic low back pain, found with portal vein thrombosis and radiological concerns for ?ileus. -Intractable spasmodic low back pain -Portal vein thrombosis -Radiological concerns for ?ileus -h/o epilepsy Plan: Place on standing flexeril, ibuprofen. COntinue morphine prn. Neg for neurological concerns. Lumbar xray noted. Lumbar MRI. Neurological exam non concerning, no spinal point tenderness, cannot completely r/o referred pain from abdominal source though character and exam less likely to suggest the same. GI input appreciated. Malignancy/auto immune w/u sent. Hematology consult placed. Check abdominal MRI. Clinical exam and presentation not suggestive of ilues. Will continue bowel regimen while on narcotics. PT eval. ANticipate atleast 2 midnight stays given intractable pain with need for IV pain control, new portal vein thrombosis with need for additional w/u and monitoring. Plan discussed with patient in detail, all questions answered.
--- NOTE | 2017-07-02 18:49 | PN ---
Physical Exam: SUBJECTIVE: Patient seen and examined. Says he still has severe low back pain around iliac crest area. He said the pain started with spasms on his left flank and moved down to his buttock and back area. Denies weight loss, sob, chest pain , dizziness, nausea, vomiting. OBJECTIVE: Vital Signs Period Temp Pulse Resp BP Sys/Madrid Pulse Ox Last 24 Hr 97.5 F-98.2 F 66-72 16-20 103-125/57-79 96-96 GENERAL: The patient is awake, alert, and fully oriented, in no acute distress. In mild distress when moving body. HEAD: Normal with no signs of trauma. EYES: PERRL, extraocular movements intact, sclera anicteric, conjunctiva clear. No ptosis. ENT: oropharynx clear without exudates, moist mucous membranes. NECK: supple. LUNGS: Breath sounds equal, clear to auscultation bilaterally, no wheezes, no crackles, no accessory muscle use. HEART: Regular rate and rhythm, S1, S2 without murmur, rub or gallop. ABDOMEN: Soft, nontender, nondistended, normoactive bowel sounds, no guarding, no rebound EXTREMITIES: 2+ pulses, warm, well-perfused, no edema. MSK: Tenderness of left buttock. No spinal tenderness. Straight leg test positive, strength 5/5 throughout, sensation intact b/l to light touch throughout NEUROLOGICAL: Cranial nerves II through XII grossly intact. Normal speech, gait not observed. PSYCH: Normal mood, normal affect. SKIN: Warm, dry, normal turgor, no rashes or lesions noted Active Medications Generic Name Dose Route Start Last Admin Trade Name Tiffanie PRN Reason Stop Dose Admin Cyclobenzaprine HCl 10 mg 07/02/17 14:00 07/02/17 14:08 Flexeril - PO 10 mg TID [facility] Administration Docusate Sodium 100 mg 07/02/17 22:00 Colace - PO BID KEV Heparin Sodium (Porcine) 5,000 unit 07/01/17 14:00 07/02/17 14:08 Heparin - SQ 5,000 unit TID KEV Administration Ibuprofen 400 mg 07/02/17 11:00 07/02/17 16:30 Motrin - PO 400 mg TID KEV Administration Levetiracetam 750 mg 07/01/17 22:00 07/02/17 09:48 Keppra - PO Not Given BID KEV Methyl Salicylate 1 applic 07/02/17 10:15 07/02/17 14:08 [place]-Monsivais - TP 1 applic BID KEV Administration Morphine Sulfate 2 mg 07/01/17 12:09 07/01/17 14:28 Morphine Injection - IVPUSH 2 mg Q4H PRN Administration PAIN LEVEL 6-10 Pantoprazole Sodium 40 mg 07/02/17 11:00 07/02/17 11:14 Protonix - PO 40 mg DAILY KEV Administration Senna 2 tab 07/02/17 10:05 Senna - PO HS PRN CONSTIPATION CT abd/pelvis w/contrast 07/01/17: Impression: 1. Tiny R renal cysts. No evidence of hydroureteronephrosis or stones bilaterally. 2. Linear filling defect in the L splenic vein suggestive of non-occulsive thrombus. 3. Fluid filled slightly dilated mid and distal bowel loops likely secondary to ileus. CLose f/u needed to r/o low-grade obstruction 4. No evidence of acute diverticulitis ASSESSMENT/PLAN: 42 y/o M w/PMH of epilepsy presents to the ER with back pain. Admitted for observation due to intractable back pain. #Intractable back pain -Flexeril 10mg TID -Ibuprofen 400mg TID -Morphine 2mg Q4H PRN -CT abd/pelvis does not show any etiology of back pain -Lumbar X ray unremarkable -FU Abdomen/Lumbar MRI. -Neuro checks for LE sensation, strength, and bowel/bladder incontinence -Physical Therapy #Splenic Vein Thrombus -ABD CT: Linear filling defect in the L splenic vein suggestive of non- occlusive thrombus. -w/o on obvious risk factors in the history -idiopathic event, however malignancy vs coagulopathy vs chronic inflammation cannot be r/o -GI consulted -Lumbar and abdomen MRI -POLLY, ESR/CRP, Viral hep profile, stool hemoccult, AMA, AMS, ALKM-1, PSA, CA19-9 , AFP -Hem/Onc consulted (Dr. Chavez) additional work up and need for A/C #Hx of epilepsy -c/w keppra 750 mg po bid #DVT ppx -Heparin 5000 units SQ TID #FEN -No fluids -monitor electrolytes, replete as needed. -Regular diet Plan discussed with patient in detail, all questions answered. Dispo: Inpatient Visit type - Emergency Visit Emergency Visit: Yes ED Registration Date: 07/02/17 Care time: The patient presented to the Emergency Department on the above date and was hospitalized for further evaluation of their emergent condition. - New Patient This patient is new to me today: Yes Date on this admission: 07/02/17 - Critical Care Critical Care patient: No
[2017-07-02] MEDS ORDERED: MORPHINE SULFATE 10 MG/1 ML *VIAL IVPUSH PRN (19:55)
[2017-07-02] MEDS ORDERED: DOCUSATE SODIUM 100 MG CAPSULE (FP) PO SCH (22:00)
[2017-07-02] MEDS ORDERED: SENNOSIDES 8.6MG TABLET (FP) PO SCH (22:00)
[2017-07-02] MEDS: CYCLOBENZAPRINE HCL 10 MG TABLET (FP) PO SCH (22:57)
[2017-07-02] MEDS: DOCUSATE SODIUM 100 MG CAPSULE (FP) PO SCH (22:57)
[2017-07-02] MEDS: METHYL SALICYLATE/MENTHOL OINT 30 GM TUBE TP SCH (22:58)
[2017-07-03] MEDS: IBUPROFEN 400 MG TABLET (FP) PO SCH ×2 (06:04→13:31)
[2017-07-03] MEDS: CYCLOBENZAPRINE HCL 10 MG TABLET (FP) PO SCH ×2 (06:04→13:26)
[2017-07-03] MEDS: HEPARIN NA (PORCINE) 5,000 UNITS/ML 1ML VIAL SQ SCH ×2 (06:05→13:27)
[2017-07-03 08:38] LABS: INR 1.19 (0.82-1.09); PROTHROMBIN TIME (PATIENT) 13.5 SEC (9.98-11.88)
[2017-07-03 08:41] LABS: ACTIVATED PTT 32.2 SECONDS (26.9-34.4)
--- NOTE | 2017-07-03 08:41 | PN ---
Progress Note, Physician History of Present Illness: No events. Back pain is better. Uses his own analgesic topical cream - Current Medication List Current Medications: Active Medications Cyclobenzaprine HCl (Flexeril -) 10 mg PO TID [facility] Last Admin: 07/03/17 06:04 Dose: 10 mg Docusate Sodium (Colace -) 100 mg PO BID [facility] Last Admin: 07/02/17 22:57 Dose: 100 mg Heparin Sodium (Porcine) (Heparin -) 5,000 unit SQ TID [facility] Last Admin: 07/03/17 06:05 Dose: 5,000 unit Ibuprofen (Motrin -) 400 mg PO TID [facility] Last Admin: 07/03/17 06:04 Dose: 400 mg Levetiracetam (Keppra -) 750 mg PO BID [facility] Last Admin: 07/02/17 22:56 Dose: Not Given Methyl Salicylate ([place]-Monsivais -) 1 applic TP BID [facility] Last Admin: 07/02/17 22:58 Dose: 1 applic Morphine Sulfate (Morphine Injection -) 2 mg IVPUSH Q4H PRN PRN Reason: PAIN LEVEL 6-10 Pantoprazole Sodium (Protonix -) 40 mg PO DAILY [facility] Senna (Senna -) 2 tab PO HS PRN PRN Reason: CONSTIPATION - Objective Vital Signs: Vital Signs Temperature 97.4 F L 07/03/17 07:08 Pulse Rate 66 07/03/17 07:08 Respiratory Rate 20 07/03/17 07:08 Blood Pressure 104/64 07/03/17 07:08 O2 Sat by Pulse Oximetry (%) 97 07/02/17 21:00 Constitutional: Yes: No Distress, Calm Eyes: Yes: Conjunctiva Clear HENT: Yes: Atraumatic Neck: Yes: Supple Cardiovascular: Yes: Regular Rate and Rhythm Respiratory: Yes: Regular Gastrointestinal: Yes: Soft. No: Melena, Tenderness, Tenderness, Rebound, Vomiting Neurological: Yes: Alert, Oriented Labs: CBC, BMP 07/01/17 06:39 07/01/17 06:39 CBCD WBC 10.0 K/mm3 (4.0-10.0) 07/01/17 06:39 RBC 5.01 M/mm3 (4.00-5.60) 07/01/17 06:39 Hgb 14.6 GM/dL (11.7-16.9) 07/01/17 06:39 Hct 44.2 % (35.4-49) 07/01/17 06:39 MCV 88.2 fl (80-96) 07/01/17 06:39 MCHC 32.9 g/dl (32.0-35.9) 07/01/17 06:39 RDW 12.7 % (11.9-15.9) 07/01/17 06:39 Plt Count 300 K/MM3 (134-434) 07/01/17 06:39 MPV 8.6 fl (7.5-11.1) 07/01/17 06:39 CMP Sodium 140 mmol/L (136-145) 07/01/17 06:39 Potassium 4.2 mmol/L (3.5-5.1) 07/01/17 06:39 Chloride 105 mmol/L (98-107) 07/01/17 06:39 Carbon Dioxide 29 mmol/L (21-32) 07/01/17 06:39 Anion Gap 6 (8-16) L 07/01/17 06:39 BUN 17 mg/dL (7-18) D 07/01/17 06:39 Creatinine 0.7 mg/dL (0.7-1.3) 07/01/17 06:39 Creat Clearance w eGFR > 60 (>60) 07/01/17 06:39 Calcium 8.2 mg/dL (8.5-10.1) L 07/01/17 06:39 Total Bilirubin 0.5 mg/dL (0.2-1.0) D 07/01/17 06:39 AST 19 U/L (15-37) D 07/01/17 06:39 ALT 34 U/L (12-78) 07/01/17 06:39 Alkaline Phosphatase 84 U/L (45-117) 07/01/17 06:39 Total Protein 6.5 g/dl (6.4-8.2) 07/01/17 06:39 Albumin 3.6 g/dl (3.4-5.0) 07/01/17 06:39 Problem List - Problems (1) Splenic vein thrombosis Code(s): I82.890 - ACUTE EMBOLISM AND THROMBOSIS OF OTHER SPECIFIED VEINS (2) Lower back pain Code(s): M54.5 - LOW BACK PAIN Qualifiers: Chronicity: acute Back pain laterality: bilateral Sciatica presence: without sciatica Qualified Code(s): M54.5 - Low back pain (3) Seizure Code(s): R56.9 - UNSPECIFIED CONVULSIONS Assessment/Plan In progress: Lumbar and abdomen MRI POLLY, ESR/CRP Viral hep profile, stool hemoccult, AMA, AMS, ALKM-1, PSA, CA19-9, AFP Hem/Onc consultation re additional work up and need for A/C
[2017-07-03] MEDS ORDERED: PT OWN MED DRAWER 7, Y5N ONE (09:32)
[2017-07-03] MEDS: METHYL SALICYLATE/MENTHOL OINT 30 GM TUBE TP SCH (09:36)
[2017-07-03] MEDS: DOCUSATE SODIUM 100 MG CAPSULE (FP) PO SCH (09:36)
[2017-07-03] MEDS: levETIRAcetam 250 MG TABLET (FP) PO SCH (09:40)
--- NOTE | 2017-07-03 09:57 | CONSULT ---
Consult Consult Specialty:: Hematology - History of Present Illness History of Present Illness: 42 y/o M w/PMH of epilepsy presents to the ER with back pain. Admitted for observation due to intractable back pain. Hematology consulted for incidental finding of splenic vein thrombosis - History Source History Provided By: Patient, Family Member, Medical Record - Past Medical History Gastrointestinal: No: Ascites, Cancer, Constipation, Crohn's Disease, Diverticulitis, Diverticulosis, Esophageal Varices, Gastritis, GERD, GI Bleed, Hemorrhoids, Hiatal Hernia, Inflamatory Bowel Disease, Irritable Bowel Disease, Pancreatitis, Peptic Ulcer Disease, Ulcerative Colitis, Other Hepatobiliary: No: Cirrhosis, Cholelithiasis, Cholecystitis, Choledocholithiasis , Hepatitis A, Hepatitis B, Hepatitis C, Other Rheumatology: No: Fibromyalgia, Gout, Lupus, Rheumatoid Arthritis, Sarcoidosis, Vasculitis, Other - Alcohol/Substance Use Hx Alcohol Use: No - Smoking History Smoking history: Never smoked Have you smoked in the past 12 months: No Home Medications - Allergies Allergies/Adverse Reactions: Allergies Allergy/AdvReac Type Severity Reaction Status Date / Time No Known Allergies Allergy Verified 07/01/17 02:29 - Home Medications Home Medications: Ambulatory Orders Levetiracetam [Keppra -] 750 mg PO BID #84 tablet 12/24/16 Family Disease History - Family Disease History Family Disease History: Other: Mother (mild cognitive impairment, kidney stone) Physical Exam Vital Signs: Vital Signs Temperature 97.4 F L 07/03/17 07:08 Pulse Rate 66 07/03/17 07:08 Respiratory Rate 20 07/03/17 07:08 Blood Pressure 104/64 07/03/17 07:08 O2 Sat by Pulse Oximetry (%) 97 07/02/17 21:00 Constitutional: Yes: Well Nourished, No Distress, Anxious Eyes: Yes: Conjunctiva Clear HENT: Yes: Atraumatic, Normocephalic Neck: Yes: Supple, Trachea Midline Cardiovascular: Yes: Regular Rate and Rhythm Respiratory: Yes: Regular, CTA Bilaterally Gastrointestinal: Yes: Normal Bowel Sounds, Soft, Abdomen, Obese Musculoskeletal: Yes: WNL Extremities: Yes: WNL Edema: No Labs: CBC, BMP 07/01/17 06:39 07/01/17 06:39 Imaging - Results Cat Scan: Report Reviewed Problem List - Problems (1) Splenic vein thrombosis Code(s): I82.890 - ACUTE EMBOLISM AND THROMBOSIS OF OTHER SPECIFIED VEINS (2) Seizure Code(s): R56.9 - UNSPECIFIED CONVULSIONS (3) Seborrheic dermatitis of scalp Code(s): L21.9 - SEBORRHEIC DERMATITIS, UNSPECIFIED Assessment/Plan Incidental finding of Splenic Vein thrombosis Unknown etiology. Hypercoag w/u and MPN w.u as an OP, appt given to him In Re: to treatment: Evidence is equivocal, but because of the idiopathic nature and the unusual site of the blood clot, recommend systemic AC. Choice of AC : Lovenox with coumadin. vs NOACs,. But, recommend therapeutic Lovenox with coumadin bridge, as NOACs not well known for this site. I have explained to the pt about each choice in great detail. Anatomy of the thrombus and nature and uncertainity of the thrombus was explained too. He did not want to make any decision at this time as he wanted the MRI report resulted, if decides, recommend Lovenox with coumadin bridge , INR of 2-3. would need dietary and med counselling. Duration of AC to be decided. Primary team was made aware.
[2017-07-03] MEDS ORDERED: PANTOPRAZOLE 40 MG TABLET (FP) PO SCH (10:00)
[2017-07-03] MEDS ORDERED: ACETAMINOPHEN 325 MG TABLET (FP) PO PRN (12:43)
--- NOTE | 2017-07-03 12:43 | PN ---
Teaching Attending Note Name of Resident: Ten Reich ATTENDING PHYSICIAN STATEMENT Time of evaluation: 9:40 AM I saw and evaluated the patient. I reviewed the resident's note and discussed the case with the resident. I agree with the resident's findings and plan as documented. SUBJECTIVE: Patient seen and examined. Denies current flank or back pain, no abdominal or urinary symptoms. has been ambulating much better today. No nausea/vomiting/ abdominal pain or diarrhea. OBJECTIVE: Vital Signs Period Temp Pulse Resp BP Sys/[place]rid Pulse Ox Last 24 Hr 97.4 F-98.5 F 59-76 16-20 103-121/57-70 97 Intake & Output 06/30/17 07/01/17 07/02/17 07/03/17 23:59 23:59 23:59 23:59 Intake Total 250 Balance 250 Weight 170 lb 0.01 oz General: sitting in bed in no acute distress musculoskeletal: neg for Left Flank/spinal tenderness, SLR neg, LE power 5/5, sensation intact to light touch, markedly improved exam Abdomen: soft, NT, ND, positive bowel sounds Active Medications Generic Name Dose Route Start Last Admin Trade Name Freq PRN Reason Stop Dose Admin Cyclobenzaprine HCl 10 mg 07/02/17 22:00 07/03/17 06:04 Flexeril - PO 10 mg TID KEV Administration Docusate Sodium 100 mg 07/02/17 22:00 07/03/17 09:36 Colace - PO 100 mg BID KEV Administration Heparin Sodium (Porcine) 5,000 unit 07/02/17 22:00 07/03/17 06:05 Heparin - SQ 5,000 unit TID KEV Administration Ibuprofen 400 mg 07/02/17 22:00 07/03/17 06:04 Motrin - PO 400 mg TID KEV Administration Levetiracetam 750 mg 07/02/17 22:00 07/03/17 09:40 Keppra - PO Not Given BID KEV Methyl Salicylate 1 applic 07/02/17 22:00 07/03/17 09:36 [place]ons[place]ais - TP 1 applic BID KEV Administration Morphine Sulfate 2 mg 07/02/17 19:55 Morphine Injection - IVPUSH Q4H PRN PAIN LEVEL 6-10 Pantoprazole Sodium 40 mg 07/03/17 10:00 07/03/17 09:36 Protonix - PO 40 mg DAILY KEV Administration Senna 2 tab 07/02/17 19:55 Senna - PO HS PRN CONSTIPATION Laboratory Results - last 24 hr 07/03/17 07/03/17 07/03/17 06:15 06:15 06:15 ESR 5 PT with INR 13.50 H INR 1.19 H PTT (Actin FS) 32.2 C-Reactive Protein < 0.3 Microbiology 07/01/17 04:52 Urine - Urine Clean Catch Urine Culture - Final NO GROWTH OBTAINED MRi abdomen pending ASSESSMENT AND PLAN: 42 yom with epilepsy with intractable spasmodic low back pain, found with portal vein thrombosis and radiological concerns for ?ileus. -Intractable spasmodic low back pain -Splenic vein thrombosis -Radiological concerns for ?ileus -h/o epilepsy Plan: Back symptoms almost resolved, patient ambulating. standing flexeril/ibuprofen and hot pack/acetaminophen/bengay topical prn. D/c morphine. PT eval. Patient does not want Lumbar MRI now, will hold off as symptoms almost resolved. GI input appreciated. Malignancy/auto immune w/u sent. Hematology input appreciated. Follow up Abdominal MRI, based on findings discuss with PCP and address lovenox/ coumadin with patient accordingly per patient's wishes. He wants MRI results and discussion with his PCP before making the decision. If agreable, lovenox/coumadin teaching, if refuses, outpatient follow up with heme next week. Bowel regimen. PT eval. Dispo planning pending pending above, either today or tomorrow if no new events.
[2017-07-03 14:47] VITALS: TEMP 97.7
--- NOTE | 2017-07-03 17:05 | DS ---
Physical Exam: SUBJECTIVE: Patient seen and examined. No acute events overnight. Patient says his back pain improved after medications were given. He denies back pain, chest pain, dizziness, sob, nausea, vomiting and diarrhea. OBJECTIVE: Vital Signs Period Temp Pulse Resp BP Sys/Madrid Pulse Ox Last 24 Hr 97.4 F-98.5 F 59-80 16-20 104-121/59-70 97 PHYSICAL EXAM GENERAL: The patient is awake, alert, and fully oriented, in no acute distress. In mild distress when moving body. HEAD: Normal with no signs of trauma. EYES: PERRL, extraocular movements intact, sclera anicteric, conjunctiva clear. No ptosis. ENT: oropharynx clear without exudates, moist mucous membranes. NECK: supple. LUNGS: Breath sounds equal, clear to auscultation bilaterally, no wheezes, no crackles, no accessory muscle use. HEART: Regular rate and rhythm, S1, S2 without murmur, rub or gallop. ABDOMEN: Soft, nontender, nondistended, normoactive bowel sounds, no guarding, no rebound EXTREMITIES: 2+ pulses, warm, well-perfused, no edema. MSK: Non tender. No spinal tenderness. Straight leg test positive, strength 5/5 throughout, sensation intact b/l to light touch throughout NEUROLOGICAL: Cranial nerves II through XII grossly intact. Normal speech, gait not observed. PSYCH: Normal mood, normal affect. SKIN: Warm, dry, normal turgor, no rashes or lesions noted LABS Laboratory Results - last 24 hr 07/03/17 07/03/17 07/03/17 06:15 06:15 06:15 ESR 5 PT with INR 13.50 H INR 1.19 H PTT (Actin FS) 32.2 C-Reactive Protein < 0.3 CT abd/pelvis w/contrast 07/01/17: Impression: 1. Tiny R renal cysts. No evidence of hydroureteronephrosis or stones bilaterally. 2. Linear filling defect in the L splenic vein suggestive of non-occulsive thrombus. 3. Fluid filled slightly dilated mid and distal bowel loops likely secondary to ileus. CLose f/u needed to r/o low-grade obstruction 4. No evidence of acute diverticulitis MRCP Abdomen: As compared to CT of July 01, 2017, there is interval decrease in the clot seen in the distal splenic vein just proximal to the confluence with the SMV with streak filling defect seen in the distal splenic vein likely distal movement of the afro mentioned clot seen on CT scan. No SMV or portal vein thrombosis seen. 8 mm simple left renal cyst. Dilated aortic root at 4.7 cm and fusiform aneurysmal dilatation of the ascending aorta at 5.5 cm. HOSPITAL COURSE: Date of Admission:07/02/17 42 y/o M w/PMH of epilepsy presents to the ER with back pain. Admitted for observation due to intractable back pain and was found to have a non-occlusive splenic vein thrombus and dilatation of aortic root/ascending aorta(5.5cm) anuerysm. Patient's back pain improve with Flexeril 10mg TID, PRN ibuprofen, and morphine prn. Patient has been explained in detail regarding importance of anti-coagulation. The primary team and the biometrician explained to him, patient verbalizes understanding, however he refused anti-coagulation and insisted he would follow up outpatient tomorrow with his PCP. Discussed with patient risks of rupture and clot progression, and close monitor is advised. Also discussed the aortic root/ascending aorta aneurysm with patient and cardiothoracic surgeon. The surgeon recommended outpatient follow up as soon as possible for further management of the aneurysms. All details and contact info of cardiothoracic surgeon and biometrician has been provided to the patient. Date of Discharge: 07/03/17 Minutes to complete discharge: 35 Discharge Summary Reason For Visit: INTRACTABLE BACK PAIN Current Active Problems Aortic root dilatation (Acute) Ascending aorta dilatation (Acute) Lower back pain (Acute) Splenic vein thrombosis (Acute) Condition: Stable - Instructions Diet, Activity, Other Instructions: You have a blood clot in your splenic vein. You MUST follow up with your biometrician (Dr. Orozco on 06/07/2017 at 12 pm) and primary care physician and as soon as possible so you can be started on blood thinners. Make an appointment TODAY. Also follow up with Dr. Lexi Christianson ([phone]) There was also a dilatation of your Aortic arch and aescending aorta 5.5 cm which are big arteries in your body. You MUST follow up with the Cardiothoracic surgeon for further management as soon as possible. Make an appointment TODAY. You were strongly recommended blood thinners by biometrician and vascular surgeon. However you decline to make a decision currently. Risks of withholding treatment including progression of clot, spread of lungs and have been explained, you fully understand the risks and will still not want to be on blood thinners as of now. Also cardiac surgeon has been informed of your findings and his office will call you to schedule follow up. He is based in [facility]. However also strongly recommend to call his office on discharge to confirm follow up. Take flexeril as needed for back pain and taper as symptoms improve. The medication can make you sleepy so do not drive, operate heavy machinery or take important decisions alone while on this medication. Taper the medication to off over next 3-4 days. BLOOD WORK TO ADDRESS THE REASON FOR YOUR CLOT HAS BEEN SENT AND ALL THE RESULTS ARE CURRENTLY PENDING, PLEASE HAVE YOUR PCP FOLLOW UP ON RESULTS EARLY NEXT WEEK. YOU WILL ALSO NEED SCREENING TO RULE OUT UNDERLYING CANCER WELL. The following blood work is pending: POLLY, Hepatitis panel, AFP, CA 19-9, PSA If you have worsening of your symptoms, any new leg tingling/numbness, weakness , belly pain, chest pain, trouble breathing or any new concerns, call 911 or come to ED right away. Referrals: Yandy Orozco MD [Staff Physician] - 07/08/17 12:00 pm (06/07/2017) Sarah Uribe MD [Primary Care Provider] - 1 Week Disposition: HOME - Home Medications Comprehensive Discharge Medication List: Ambulatory Orders Levetiracetam [Keppra -] 750 mg PO BID #84 tablet 12/24/16 Acetaminophen [Tylenol .Regular Strength -] 650 mg PO Q6H PRN tablet 07/03/17 Cyclobenzaprine HCl [Flexeril 10 mg] 10 mg PO BID PRN #20 tablet 07/03/17 Methyl Salicylate/Menthol Oint [Analgesic [place] -] 1 applic TP BID applic This patient is new to me today: No Emergency Visit: No Critical Care patient: No - Discharge Referral Referred to [facility] Med P.C.: No
[2017-07-03 17:22] VITALS: BP 129/91; PULSE 78
[2017-07-05 00:07] LABS: HBSAG SCREEN Negative (Negative); HEP A AB, IGM Negative (Negative); HEP B CORE AB, TOT Positive (Negative)
== END 2017-07-03 19:16 | disposition home or self-care (01) | DRG 552 ==
LOC: JER 02:12 → JERBED 10:33 → J8W 12:18 → OBSVTOIN 07-02 17:22
PROVIDERS: ADMIT Internal Medicine; ATTEND Hospitalist
DX: M54.5 Low back pain (principal); G40.802 Other epilepsy, not intractable, without status epilepticus; I82.890 Acute embolism and thrombosis of other specified veins; K56.7 Ileus, unspecified; N28.1 Cyst of kidney, acquired; L21.9 Seborrheic dermatitis, unspecified
CPT/HCPCS: 36415; 72100-TC-FY; 72170-TC-FY; 74177-TC; 74182-TC; 80053; 81003; 82105; 83735; 84100; 84153; 85025; 85610; 85651; 85730; 86038; 86140; 86301; 86704; 86706; 86708; 86803; 87086; 87340; 90688; 97116-GP; 97161-GP; 99284-25; G0378; J1644

== ENCOUNTER 2018-05-18 03:56 | Emergency (ER) | payer BC, OTHER ==
[2018-05-18] MEDS ORDERED: levETIRAcetam 500 MG/5 ML INJECTION VIAL IVPB ONE ×2 (04:24→04:51)
--- NOTE | 2018-05-18 04:34 | PDOC ---
History of Present Illness - General Chief Complaint: Seizure Stated Complaint: SEIZURE History Source: Patient, Spouse - History of Present Illness Initial Comments: 05/18/18 04:26 Patient is a 43 year old male with h/o HTN, seizure, open heart surgery for aortic value replacement on eliquis came by cab brought by for c/o seizure at bout 2:30am while in bed. who witnessed the episode states lasted for few mins with tongue biting, no incontinence. No head strike. Patient states compliance with meds. No changes in life circumstance lately. No fever, chills , nausea, vomiting. PMD: Dr. Senior Sylucina NEURO: Dr. Padmini Johnson ([facility]) PMHX: as above PSOCHX: neg etoh, drug, cig ALL: NKDA GENERAL/CONSTITUTIONAL: [No fever or chills. No weakness. No weight change.] HEAD, EYES, EARS, NOSE AND THROAT: [No change in vision. No ear pain or discharge. No sore throat.] CARDIOVASCULAR: [No chest pain or shortness of breath.] RESPIRATORY: [No cough, wheezing, or hemoptysis.] GASTROINTESTINAL: [No nausea, vomiting, diarrhea or constipation. No rectal bleeding.] GENITOURINARY: [No dysuria, frequency, or change in urination.] MUSCULOSKELETAL: [No joint or muscle swelling or pain. No neck or back pain.] SKIN AND BREASTS: [No rash or easy bruising.] NEUROLOGIC: [No headache, vertigo, (+) seizure, loss of consciousness, (-) loss of sensation.] PSYCHIATRIC: [No depression or anxiety.] ENDOCRINE: [No increased thirst. No abnormal weight change.] HEMATOLOGIC/LYMPHATIC: [No anemia, easy bleeding, or history of blood clots.] ALLERGIC/IMMUNOLOGIC: [No hives or skin allergy. No latex allergy.] GENERAL: [The patient is awake, alert, and fully oriented, in no acute distress. ] HEAD: [Normal with no signs of trauma.] EYES: [Pupils equal, round and reactive to light, extraocular movements intact, sclera anicteric, conjunctiva clear.] ENT: [Ears normal, nares patent, oropharynx clear without exudates. Moist mucous membranes, tongue bitten] NECK: [Normal range of motion, supple without lymphadenopathy, JVD, or masses.] LUNGS: [Breath sounds equal, clear to auscultation bilaterally. No wheezes, and no crackles.] HEART: [Regular rate and rhythm, normal S1 and S2 without murmur, rub.] ABDOMEN: [Soft, nontender, normoactive bowel sounds. No guarding, no rebound. No masses.] EXTREMITIES: [Normal range of motion, no edema. No clubbing or cyanosis. No cords, erythema, or tenderness.] NEUROLOGICAL: [Cranial nerves II through XII grossly intact. Normal speech, normal gait.] PSYCH: [Normal mood, normal affect.] SKIN: [Warm, Dry, normal turgor, no rashes or lesions noted.] Past History - Past Medical History Allergies/Adverse Reactions: Allergies Allergy/AdvReac Type Severity Reaction Status Date / Time No Known Allergies Allergy Verified 07/01/17 02:29 Home Medications: Ambulatory Orders levETIRAcetam [Keppra -] 750 mg PO BID #84 tablet 12/24/16 Apixaban [Eliquis] 5 mg PO BID 05/18/18 Metoprolol Succinate 100 mg PO DAILY 05/18/18 COPD: No DVT: No Seizures: Yes - Immunization History Immunization Up to Date: Yes - Suicide/Smoking/Psychosocial Hx Smoking History: Never smoked Have you smoked in the past 12 months: No Hx Alcohol Use: No Drug/Substance Use Hx: No Substance Use Type: None Hx Substance Use Treatment: No *Physical Exam - Vital Signs Last Vital Signs Temp Pulse Resp BP Pulse Ox 98.5 F 81 19 120/94 97 05/18/18 04:08 05/18/18 04:08 05/18/18 04:08 05/18/18 04:08 05/18/18 04:08 Moderate Sedation - Procedure Monitoring Vital Signs: Procedure Monitoring Vital Signs Temperature 98.5 F 05/18/18 04:08 Pulse Rate 81 05/18/18 04:08 Respiratory Rate 19 05/18/18 04:08 Blood Pressure 120/94 05/18/18 04:08 O2 Sat by Pulse Oximetry (%) 97 05/18/18 04:08 ED Treatment Course - LABORATORY CBC & Chemistry Diagram: 05/18/18 04:36 05/18/18 04:36 Medical Decision Making - Medical Decision Making 05/18/18 04:26 Patient is a 43 year old male with h/o HTN, seizure, open heart surgery for aortic value replacement on eliquis came by cab brought by for c/o seizure at bout 2:30am while in bed. will get routine labs give Keppra 1 gm call patients neuro 05/18/18 05:16 Patient c/o WRIGHT post seizure given Tylenol 1 gm IV. 05/18/18 06:12 Paged patient neurologist ? change in management 05/18/18 06:26 Case d/w Dr. Olivo recommed for patient to call his neuro at 9 am for medication management. Patient c/o rash on hand will refer to Rheum I discussed the physical exam findings, ancillary test results and final diagnoses with the patient. I answered all of the patient's questions. The patient was satisfied with the care received and felt comfortable with the discharge plan and treatment plan. The Patient agrees to follow up with the primary care physician within 24-72 hours. *DC/Admit/Observation/Transfer Diagnosis at time of Disposition: Seizure, Rash - Discharge Dispostion Disposition: HOME Condition at time of disposition: Stable - Referrals Referrals: Irvin Chowdhury MD [Staff Physician] - - Patient Instructions Printed Discharge Instructions: DI for Seizure Disorder -- Adult, DI for Rash Additional Instructions: Your Discharge Instructions: You must call primary care physician within 24 hours to arrange follow-up. Return to the Emergency Department with any new, persistent or worsening symptoms, for fever, chills, SOB, dizziness or any other concerning changes that may occur. Call you own Neurology at 9 am today for medication management. - Post Discharge Activity
[2018-05-18 04:39] VITALS: TEMP 98.5; BMI 25.0
[2018-05-18 04:54] LABS: BASO % 0.9 % (0-2.0); EOS % 1.6 % (0-4.5); HEMATOCRIT 43.3 % (35.4-49); HEMOGLOBIN 15.2 GM/dL (11.7-16.9); LYMPH % 14.6 % (8-40); MCH 30.2 pg (25.7-33.7); MEAN CELL VOLUME 86.2 fl (80-96); MEAN PLT VOLUME 8.8 fl (7.5-11.1); MONO % 8.2 % (3.8-10.2); NEUT % 74.7 % (42.8-82.8); PLATELET COUNT 258 K/MM3 (134-434); RBC 5.03 M/mm3 (4.00-5.60); RDW 12.6 % (11.9-15.9); WHITE BLOOD COUNT 10.3 K/mm3 (4.0-10.0)
[2018-05-18] MEDS ORDERED: ACETAMINOPHEN 1000 MG/100 ML VIAL (NON FORMULARY) IVPB ONE (05:15)
[2018-05-18] MEDS ORDERED: ACETAMINOPHEN INJECTION 100 ML IVPB ONE (05:16)
[2018-05-18 05:28] LABS: ALBUMIN 3.8 g/dl (3.4-5.0); ALK PHOS 73 U/L (45-117); ANION GAP 5 MMOL/L (8-16); BILIRUBIN,TOTAL 0.4 mg/dL (0.2-1); BLOOD UREA NITROGEN 19 mg/dL (7-18); CALCIUM 8.3 mg/dL (8.5-10.1); CHLORIDE 106 mmol/L (98-107); CO2 26 mmol/L (21-32); GLUCOSE,RANDOM 98 mg/dL (74-106); SGOT/AST 21 U/L (15-37); SGPT/ALT 29 U/L (13-61); SODIUM 137 mmol/L (136-145)
--- NOTE | 2018-05-18 06:42 | PDOC ---
*Physical Exam - Vital Signs Last Vital Signs Temp Pulse Resp BP Pulse Ox 98.5 F 81 19 120/94 97 05/18/18 04:08 05/18/18 04:08 05/18/18 04:08 05/18/18 04:08 05/18/18 04:08 - Physical Exam General Appearance: Yes: Nourished Neck: positive: Trachea midline Respiratory/Chest: positive: Lungs Clear, Normal Breath Sounds Cardiovascular: positive: Regular Rhythm, Regular Rate, S1, S2 Gastrointestinal/Abdominal: positive: Normal Bowel Sounds, Flat, Soft Musculoskeletal: positive: Normal Inspection ED Treatment Course - LABORATORY CBC & Chemistry Diagram: 05/18/18 04:36 05/18/18 04:36 - ADDITIONAL ORDERS Additional order review: Laboratory Results 05/18/18 04:36 Sodium 137 Potassium 4.0 Chloride 106 Carbon Dioxide 26 Anion Gap 5 L BUN 19 H Creatinine 1.0 Creat Clearance w eGFR > 60 Random Glucose 98 Calcium 8.3 L Total Bilirubin 0.4 AST 21 ALT 29 Alkaline Phosphatase 73 Total Protein 7.0 Albumin 3.8 05/18/18 04:36 RBC 5.03 MCV 86.2 MCHC 35.0 RDW 12.6 MPV 8.8 Neutrophils % 74.7 D Lymphocytes % 14.6 D Monocytes % 8.2 Eosinophils % 1.6 Basophils % 0.9 D - Medications Given in the ED: ED Medications Discontinued Medications Generic Name Dose Route Start Last Admin Trade Name Kyleq PRN Reason Stop Dose Admin Acetaminophen 1,000 mg 05/18/18 05:15 05/18/18 05:19 Ofirmev Injection - IVPB 05/18/18 05:16 1,000 mg ONCE ONE Administration Levetiracetam 1,000 mg 05/18/18 04:24 05/18/18 04:56 Keppra Injection - IVPB 05/18/18 04:25 1,000 mg ONCE ONE Administration Medical Decision Making - Medical Decision Making 05/18/18 06:45 43 yo male with h/o seizure disorder, on blood thiner for valve replacemet, here with witness seizure while in bed at 2: 30 self limited. did not hit head. no headache. feels at baseline. on exam pt normal nuerological exam. will dc home follow up outpt nuero seen in conjunction with Pa agree with assessment an dplan. *DC/Admit/Observation/Transfer Diagnosis at time of Disposition: Seizure, Rash - Discharge Dispostion Disposition: HOME Condition at time of disposition: Stable - Referrals Referrals: Irvin Chowdhury MD [Staff Physician] - - Patient Instructions Printed Discharge Instructions: DI for Seizure Disorder -- Adult, DI for Rash Additional Instructions: Your Discharge Instructions: You must call primary care physician within 24 hours to arrange follow-up. Return to the Emergency Department with any new, persistent or worsening symptoms, for fever, chills, SOB, dizziness or any other concerning changes that may occur. Call you own Neurology at 9 am today for medication management. - Post Discharge Activity
[2018-05-18 06:55] VITALS: BP 110/76; PULSE 88
--- NOTE | 2018-05-18 15:41 | EKG ---
Test Reason : Blood Pressure : / mmHG Vent. Rate : 079 BPM Atrial Rate : 079 BPM P-R Int : 184 ms QRS Dur : 086 ms QT Int : 358 ms P-R-T Axes : 048 035 052 degrees QTc Int : 410 ms NORMAL SINUS RHYTHM NORMAL ECG WHEN COMPARED WITH ECG OF 24-DEC-2016 10:57, NO SIGNIFICANT CHANGE WAS FOUND Confirmed by SATNAM PARHAM MD ([id number]) on 05/18/2018 3:41:40 PM Referred By: Confirmed By:SATNAM PARHAM MD
== END 2018-05-18 06:55 | disposition home or self-care (01) ==
LOC: JER 03:56
PROC: 3E033NZ Introduction of Analgesics, Hypnotics, Sedatives into Peripheral Vein, Percutaneous Approach (ICD-10-PCS; principal; 2018-05-18)
PROC: 3E033GC Introduction of Other Therapeutic Substance into Peripheral Vein, Percutaneous Approach (ICD-10-PCS; 2018-05-18)
DX: R56.9 Unspecified convulsions (principal); R21 Rash and other nonspecific skin eruption; I10 Essential (primary) hypertension; Z79.01 Long term (current) use of anticoagulants; Z95.2 Presence of prosthetic heart valve
CPT/HCPCS: 36415; 80053; 85025; 93005; 93010; 99283-25; J0131

== ENCOUNTER 2018-12-11 19:19 | Observation (INO) | payer BC ==
--- NOTE | 2018-12-11 21:55 | PDOC ---
History of Present Illness <Kely Mcbride - Last Filed: 12/12/18 03:26> - History of Present Illness Initial Comments: 12/11/18 23:40 43y/o M with a hx of and aortic valve replacement on anticoagulation, seizures and chronic back pain, presents to the ED with 1 wk of left calf pain radiating to his left thigh. Pain is rated as a 10/10. He has had associated cramping on his left leg, and difficulties walking. The pain is exacerbated by moving his leg and is not relieved with Tyenol. Equally present is pleuritic lower chest pain, there are also complaints of left shoulder and upper back pain. He denies any shortness of breath, cough, hemoptysis, edema, nausea or vomiting. He has had chills, fever and diaphoresis while at home. <Helder Wan - Last Filed: 12/12/18 05:56> - General Chief Complaint: Chest Pain Stated Complaint: PAIN Time Seen by Provider: 12/11/18 21:26 Past History <Kely Mcbride - Last Filed: 12/12/18 03:26> - Past Medical History Cardiac Disorders: Yes (aortic anneurysm, aortic valve repair) COPD: No DVT: No Seizures: Yes - Surgical History Cardiac Surgery: Yes - Immunization History Immunization Up to Date: Yes - Suicide/Smoking/Psychosocial Hx Smoking History: Never smoked Have you smoked in the past 12 months: No Hx Alcohol Use: No Drug/Substance Use Hx: No Substance Use Type: None Hx Substance Use Treatment: No <Helder Wan - Last Filed: 12/12/18 05:56> - Past Medical History Allergies/Adverse Reactions: Allergies Allergy/AdvReac Type Severity Reaction Status Date / Time No Known Allergies Allergy Verified 05/18/18 06:55 Home Medications: Ambulatory Orders Apixaban [Eliquis] 5 mg PO BID 05/18/18 Metoprolol Succinate 100 mg PO DAILY 05/18/18 Lacosamide [Vimpat -] 50 mg PO BID 12/11/18 levETIRAcetam [Keppra -] 1,000 mg PO BID 12/11/18 *Physical Exam - Vital Signs Last Vital Signs Temp Pulse Resp BP Pulse Ox 98.2 F 93 H 98 H 113/73 100 12/11/18 19:21 12/11/18 19:21 12/11/18 19:21 12/11/18 19:21 12/11/18 19:21 <Kely Mcbride - Last Filed: 12/12/18 03:26> - Vital Signs Last Vital Signs Temp Pulse Resp BP Pulse Ox 98.2 F 93 H 98 H 113/73 100 12/11/18 19:21 12/11/18 19:21 12/11/18 19:21 12/11/18 19:21 12/11/18 19:21 - Physical Exam General Appearance: Yes: Nourished, Appropriately Dressed, Mild Distress Respiratory/Chest: positive: Lungs Clear, Normal Breath Sounds. negative: Respiratory Distress, Accessory Muscle Use, Paradoxal Breathing, Crackles, Rales , Wheezing Cardiovascular: positive: Regular Rhythm, Regular Rate, S1, S2. negative: Edema , JVD, Murmur Vascular Pulses: Dorsalis-Pedis (R): 2+, Doralis-Pedis (L): 2+ Gastrointestinal/Abdominal: positive: Normal Bowel Sounds, Soft. negative: Tender, Tenderness Musculoskeletal: positive: Normal Inspection. negative: CVA Tenderness, CVA Tenderness (R), CVA Tenderness (L) Extremity: positive: Normal Capillary Refill, Normal Inspection, Normal Range of Motion, Calf Tenderness, Other (positive homans sign in left leg.). negative : Delayed Capillary Refill, Pedal Edema, Swelling <Helder Wan - Last Filed: 12/12/18 05:56> ED Treatment Course - LABORATORY CBC & Chemistry Diagram: 12/11/18 23:24 12/11/18 23:24 - ADDITIONAL ORDERS Additional order review: Laboratory Results 12/12/18 12/11/18 12/11/18 02:40 23:24 23:24 PT with INR INR PTT (Actin FS) 38.0 H Sodium 139 Potassium 4.5 Chloride 104 Carbon Dioxide 30 Anion Gap 4 L BUN 17.9 Creatinine 0.8 Est GFR (CKD-EPI)AfAm 126.81 Est GFR (CKD-EPI)NonAf 109.41 Random Glucose 111 H Calcium 8.6 Total Bilirubin 0.5 AST 23 ALT 38 Alkaline Phosphatase 98 Creatine Kinase 152 193 Troponin I 0.15 H 0.27 H Total Protein 7.1 Albumin 3.3 L 12/11/18 23:24 PT with INR 17.20 H INR 1.45 H PTT (Actin FS) Sodium Potassium Chloride Carbon Dioxide Anion Gap BUN Creatinine Est GFR (CKD-EPI)AfAm Est GFR (CKD-EPI)NonAf Random Glucose Calcium Total Bilirubin AST ALT Alkaline Phosphatase Creatine Kinase Troponin I Total Protein Albumin 12/11/18 23:24 RBC 4.53 MCV 90.0 MCHC 33.4 RDW 13.9 D MPV 8.4 Neutrophils % 72.5 Lymphocytes % 14.6 Monocytes % 10.3 H Eosinophils % 1.5 Basophils % 1.1 <Kely Mcbride - Last Filed: 12/12/18 03:26> - LABORATORY CBC & Chemistry Diagram: 12/11/18 23:24 12/11/18 23:24 <Helder Wan - Last Filed: 12/12/18 05:56> Medical Decision Making - Medical Decision Making 12/11/18 23:26 PE vs ACS vs aortic dissection vs aortic aneurysm complications vs Pt. does not PERC out Wells score of 2 representing moderate risk of DVT.. Labs: Pt,ptt,inr, ekg,cbc,cmp, duplex venous ultrasound, cardiac profile elevated troponin 0.27 which is less than 0.6 range qed for ami at this point suspicious inr subtherapeutic at 1.87. 12/12/18 00:52 Ultrasound done, pt heading for CTA U/S showed no evidence of DVT CTA: no aortic dissection or aneurysm Troponin now at 0.15 and is still elevated. Pt. admitted 12/12/18 05:55 <Helder Wan - Last Filed: 12/12/18 05:56> *DC/Admit/Observation/Transfer - Discharge Dispostion Decision to Admit order: Yes <Kely Mcbride - Last Filed: 12/12/18 03:26> <Helder Wan - Last Filed: 12/12/18 05:56> Diagnosis at time of Disposition: Shoulder pain, Pain of left side of body, Aortic root dilatation, Cardiac enzymes elevated - Discharge Dispostion Condition at time of disposition: Guarded
[2018-12-11 23:35] LABS: BASO % 1.1 % (0-2.0); EOS % 1.5 % (0-4.5); HEMATOCRIT 40.7 % (35.4-49); HEMOGLOBIN 13.6 GM/dL (11.7-16.9); LYMPH % 14.6 % (8-40); MCH 30.1 pg (25.7-33.7); MCHC 33.4 g/dl (32.0-35.9); MEAN PLT VOLUME 8.4 fl (7.5-11.1); MONO % 10.3 % (3.8-10.2); NEUT % 72.5 % (42.8-82.8); PLATELET COUNT 335 K/MM3 (134-434); RBC 4.53 M/mm3 (4.00-5.60); RDW 13.9 % (11.9-15.9); WHITE BLOOD COUNT 12.4 K/mm3 (4.0-10.0)
[2018-12-11] MEDS ORDERED: FOLIC ACID INJECTION - 1 MG, THIAMINE HCL 100 MG, MULTIVIT INJECTION ADULT 10 ML in SOD... IVPB ONE (23:41)
[2018-12-12 00:15] LABS: INR 1.45 (0.83-1.09); PROTHROMBIN TIME (PATIENT) 17.2 SEC (9.7-13.0)
[2018-12-12 00:21] LABS: ALBUMIN 3.3 g/dl (3.4-5.0); BILIRUBIN,TOTAL 0.5 mg/dL (0.2-1); BLOOD UREA NITROGEN 17.9 mg/dL (7-18); CALCIUM 8.6 mg/dL (8.5-10.1); CREATININE 0.8 mg/dL (0.55-1.3); POTASSIUM 4.5 mmol/L (3.5-5.1); TOT PROT 7.1 g/dl (6.4-8.2)
--- NOTE | 2018-12-12 00:59 | PDOC ---
Documentation entered by Luca Alonzo SCRIBE, acting as scribe for Kely Mcbride MD. Kely Mcbride MD: This documentation has been prepared by the Clinton irby Joel, SCRIBE, under my direction and personally reviewed by me in its entirety. I confirm that the documentation accurately reflects all work, treatment, procedures, and medical decision making performed by me. Attending Attestation - Resident Resident Name: Helder Wan - ED Attending Attestation I have performed the following: I have examined & evaluated the patient, The case was reviewed & discussed with the resident, I agree w/resident's findings & plan - HPI HPI: 12/11/18 23:22 The patient is a 43 year old male with a significant PMH of seizures, aortic dilation (s/p valve replacement, on Eliquis), aortic aneurysm, splenic vein thrombosis who presents to the emergency department for evaluation of left leg pain and chest discomfort for the past 3 days. The patient describes his left leg pain as a stabbing sensation with radiation up the left thigh toward his hip. He describes his chest discomfort as a retrosternal sensation which is aggravated by deep inhalation. The patient denies recent travel or sick contacts. The patient denies shortness of breath, headache and dizziness. Denies fever, chills, nausea, vomit, diarrhea and constipation. Denies dysuria, frequency, urgency and hematuria. Allergies: NKA Past surgical history: Aortic valve replacement. Social history: No reported cigarette, alcohol, or drug use. PCP: Dr. Eros Valadez - Physicial Exam PE: 12/11/18 23:44 GENERAL: Awake, alert, and fully oriented, in no acute distress. HEAD: No signs of trauma EYES: PERRLA, EOMI, sclera anicteric, conjunctiva clear ENT: Auricles normal inspection, hearing grossly normal, nares patent, oropharynx clear without exudates. Moist mucosa NECK: Nontender, no stepoffs, Normal ROM, supple, no lymphadenopathy, JVD, or masses LUNGS: Breath sounds equal, clear to auscultation bilaterally. No wheezes, and no crackles HEART: (+) Midline scar. Regular rate and rhythm, normal S1 and S2, no murmurs, rubs or gallops ABDOMEN: Soft, nontender, normoactive bowel sounds. No guarding, no rebound. No masses EXTREMITIES: Normal range of motion, no edema. No clubbing or cyanosis. No cords , erythema, or tenderness NEUROLOGICAL: Cranial nerves II through XII intact. 5/5 strength and sensation in all extremities, Normal speech, normal gait, normal cerebellar function SKIN: Warm, Dry, normal turgor, no rashes or lesions noted. - Medical Decision Making 12/12/18 00:51 Patient Name: EDWINA CAVANAUGH THIS IS A PRELIMINARY REPORT FROM IMAGING RN CORRECTIONS DATE OF SERVICE: 2018-12-11 23:57:55 IMAGES: 21 EXAM: DUPLEX VASCULAR US-1 LEG HISTORY: Rule out DVT. COMPARISON: None. FINDINGS: Normal compression and flow throughout the left lower extremity deep venous structures. IMPRESSION: Negative left lower extremity venous Doppler 12/12/18 03:19 Pt's cardiac enzymes are trending downward but still abnormal.-He will be admitted for serial cardiac enzyme 12/12/18 04:45 Patient Name: EDWINA CAVANAUGH THIS IS A PRELIMINARY REPORT FROM IMAGING RN CORRECTIONS DATE OF SERVICE: 2018-12-12 01:17:03 IMAGES: 1600 EXAM: CT CHEST WITHOUT AND WITH CONTRAST and CT ABDOMEN AND PELVIS WITHOUT AND WITH CONTRAST CHEST No aortic dissection or aneurysm. Suboptimal contrast opacification to evaluate for PE, but no obvious central PE. No pneumonia. Small left pleural effusion with partial atelectasis left lower lobe. Median sternotomy for aortic valve replacement. Small pericardial effusion. ABDOMEN/PELVIS No aortic dissection or aneurysm. Short segment of minimally dilated small bowel left upper quadrant, possibly transient dilatation, focal ileus, or partial/early small bowel obstruction. No colitis, free fluid or free air. Normal appendix. Unremarkable pancreas and gallbladder. Subcentimeter cortical hypodensities bilateral kidneys. Atrophy right psoas muscle
--- NOTE | 2018-12-12 04:34 | HP ---
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 Patient was accompanied by his who aided in providing HPI. Patient says he has spontaneous onset of sx's with out any exacerbating or reliving sx's, did not improve with acetaminophen. Aortic Root Sx was done at [facility] and records will be obtained. Pain has somewhat improved since visit [facility], and he is currently chest pain free. Full body pain begins in his LLE and radiates up through his thorax. Placing on telemetry. Recent Travel: Denies PAST MEDICAL HISTORY: Epilepsy, Dilation of Aortic Root, Nonocclusive splenic vein thrombus PAST SURGICAL HISTORY: Denies Social History: Smoking: Denies Alcohol: Social Drugs: Denies Family History: Mother with HTN Allergies No Known Allergies Allergy (Verified 05/18/18 06:55) HOME MEDICATIONS: Home Medications Medication Instructions Recorded Apixaban [Eliquis] 5 mg PO BID 05/18/18 Metoprolol Succinate 100 mg PO DAILY 05/18/18 Lacosamide [Vimpat -] 50 mg PO BID 12/11/18 levETIRAcetam [Keppra -] 1,000 mg PO BID 12/11/18 REVIEW OF SYSTEMS As per HPI PHYSICAL EXAMINATION Vital Signs - 24 hr 12/11/18 19:21 Temperature 98.2 F Pulse Rate 93 H Respiratory 98 H Rate Blood Pressure 113/73 O2 Sat by Pulse 100 Oximetry (%) GENERAL: A&Ox3, NAD HEAD: NCAT EYES: PERRL, EOMI EARS, NOSE, THROAT: Moist mucous membranes. NECK: Supple LUNGS: clear to auscultation bilaterally. No wheezes, no crackles. HEART: Regular rate and rhythm, normal S1 and S2 without murmur ABDOMEN: Soft, nontender, not distended, + bowel sounds MUSCULOSKELETAL: No CVA tenderness NEUROLOGICAL: Cranial nerves II-XII intact. Normal speech. SKIN: Warm, dry, Post surgical scar Laboratory Results - last 24 hr 12/11/18 12/11/18 12/11/18 23:24 23:24 23:24 WBC 12.4 H RBC 4.53 Hgb 13.6 Hct 40.7 MCV 90.0 MCH 30.1 MCHC 33.4 RDW 13.9 D Plt Count 335 D MPV 8.4 Absolute Neuts (auto) 9.0 H Neutrophils % 72.5 Lymphocytes % 14.6 Monocytes % 10.3 H Eosinophils % 1.5 Basophils % 1.1 Nucleated RBC % 0 PT with INR 17.20 H INR 1.45 H PTT (Actin FS) 38.0 H Sodium Potassium Chloride Carbon Dioxide Anion Gap BUN Creatinine Est GFR (CKD-EPI)AfAm Est GFR (CKD-EPI)NonAf Random Glucose Calcium Total Bilirubin AST ALT Alkaline Phosphatase Creatine Kinase Creatine Kinase Index CK-MB (CK-2) Troponin I Total Protein Albumin 12/11/18 12/12/18 23:24 02:40 WBC RBC Hgb Hct MCV MCH MCHC RDW Plt Count MPV Absolute Neuts (auto) Neutrophils % Lymphocytes % Monocytes % Eosinophils % Basophils % Nucleated RBC % PT with INR INR PTT (Actin FS) Sodium 139 Potassium 4.5 Chloride 104 Carbon Dioxide 30 Anion Gap 4 L BUN 17.9 Creatinine 0.8 Est GFR (CKD-EPI)AfAm 126.81 Est GFR (CKD-EPI)NonAf 109.41 Random Glucose 111 H Calcium 8.6 Total Bilirubin 0.5 AST 23 ALT 38 Alkaline Phosphatase 98 Creatine Kinase 193 152 Creatine Kinase Index 0.9 0.7 CK-MB (CK-2) 1.9 1.2 Troponin I 0.27 H 0.15 H Total Protein 7.1 Albumin 3.3 L Active Medications Apixaban (Eliquis -) 5 mg PO BID [facility] Folic Acid 1 mg/ Thiamine HCl 100 mg/ Multivitamins/Minerals 10 ml/ Sodium Chloride 1,000 mls @ 125 mls/hr IVPB ONCE ONE Stop: 12/12/18 07:40 Last Admin: 12/12/18 01:45 Dose: 125 mls/hr Levetiracetam (Keppra -) 1,000 mg PO BID [facility] ASSESSMENT/PLAN: 43 y/o M with PMHx of Epilepsy, Dilation of Aortic Root (2018) and valve repair , 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 #Atypical Chest Pain -Must R/O ACS; Still consider a sequel of prior valvuopathy -F/U final imaging, Review records from [facility] -EKG Reveals TWI that are more prominent in V1-V2 with T-Wave flattening on V3, otherwise NSR, Possible LAE, VR 82, QTc 420 -Given ASA -Trop 0.27 --> 0.15, Trend Trops, EKG -Check Echo, TSH, A1c, Lipid Panel -Cardiology (Dr. Kim) consulted -Tele monitoring #Cortical hypodensity's in Kidneys on Prelim imaging -Check Kidney/Renal Ultrasound #Possible SBO on Prelim imaging -Without associated nausea, vomiting -Serial Abdominal exams -F/U Final read on Imaging -KUB ordered for AM #Hx of Aortic root dilation -Not seen on prelim imaging report, f/u final report -Check ECHO #Hx of Splenic vein thrombus -Noted on 06/2017 admission, Left AMA at this time -Abdominal Organ (Spleen and Liver) doppler -Will Check CRP, ESR -Continue home dose Apixaban #Hx of Epilepsy -Continue Home dose Levitracetam 1000mg BID, Will need Med-Rec #Small Left pleural effusion and Small Pericardial effusion on Prelim imaging -No signs of tamponade -F/U Final read, Check Echo #FEN -No Standing fluids -Lytes WNL -NA Controlled diet #PPx -DVT: NOAC Dispo: Tele Obs Visit type - Emergency Visit Emergency Visit: Yes ED Registration Date: 12/12/18 Care time: The patient presented to the Emergency Department on the above date and was hospitalized for further evaluation of their emergent condition. - New Patient This patient is new to me today: Yes Date on this admission: 12/12/18 - Critical Care Critical Care patient: No ATTENDING PHYSICIAN STATEMENT I saw and evaluated the patient. I reviewed the resident's note and discussed the case with the resident. I agree with the resident's findings and plan as documented. SUBJECTIVE: OBJECTIVE: ASSESSMENT AND PLAN:
[2018-12-12] MEDS ORDERED: ASPIRIN 81 MG CHEWABLE TABLETS PO ONE (05:06)
--- NOTE | 2018-12-12 05:10 | PN ---
Teaching Attending Note Name of Resident: Basia William ATTENDING PHYSICIAN STATEMENT I saw and evaluated the patient. I reviewed the resident's note and discussed the case with the resident. I agree with the resident's findings and plan as documented. Patient with hx aortic root dilation s/p open AV repair (on 2017 [facility] records pending), aneurysm, splenic V thrombosis, presents to the ER with CC of full body pains and atypical CP; he is found to have a downtrending troponin. Please see resident note for further historical information VS, labs, imaging, and EKG reviewed NAD, AAO, resting in bed NC AT EOMI PERRLA RRR s1/2 Lungs CTAB, w/ sym exp NT ND +BS Legs tender to palpation b/l without edema No JVD, trachea midline Midline sternotomy scar healed appropriately On tele pending review EKG reviewed; shows CT prelim read shows No aortic dissection or aneurysm, Suboptimal contrast opacification to evaluate for PE, but no obvious central PE, small pericardial effusion, Subcentimeter cortical hypodensities bilateral kidneys, Atrophy right psoas muscle ASSESSMENT AND PLAN: Patient with hx Aortic Dilation, open AV repair, splenic V. thrombosis presents to the ER with a CC of similar pain to his prior presentation when this dx was made last year as well as associated atypical chest pain; he is found to have a postive troponin and he is now CP-free # Atypical CP/NSTEMI # Leg/Full Body pain # Hx Aortic Root Dilation # Hx Splenic V. 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 Added ASA 81mg PO QD. Followup EKG. Check echo to r/o any wmas. Further recs per cardiology. Continue home eliquis. -For the pain, can do APAP. Was given flexeril for this last admission; can consider. Check b12 but less likely neuropathic. Checking Abd US with dopplers to ensure the splenic V. thrombosis resolved (refused AC at time of Dx but has been compliant now). Pain management consult was considered at that time. Suspected AI condition at last admit; found to have negative POLLY and ESR/ CRP at that time. Can check with [facility]te if any further workup done. -For psoas, check CPK. Followup final report. Unsure of significance -For dilated bowel, followup final report. Serial abd exams; if concern of SBO make NPO and consult sgy. -Try to obtain OP records for hepatitis hx; has seen GI here in the past. Full Code
[2018-12-12] MEDS ORDERED: ASPIRIN 81 MG CHEWABLE TABLETS ONE (05:19)
[2018-12-12] MEDS ORDERED: levETIRAcetam 500 MG TABLET (FP) PO ONE (05:51)
[2018-12-12] MEDS: levETIRAcetam 500 MG TABLET (FP) PO SCH ×3 (05:56→21:15)
[2018-12-12 06:29] LABS: BASO % 0.7 % (0-2.0); EOS % 1.3 % (0-4.5); HEMATOCRIT 37.1 % (35.4-49); HEMOGLOBIN 12.6 GM/dL (11.7-16.9); MCH 30.7 pg (25.7-33.7); MEAN CELL VOLUME 90.3 fl (80-96); MEAN PLT VOLUME 8.5 fl (7.5-11.1); MONO % 10.2 % (3.8-10.2); NEUT % 67.8 % (42.8-82.8); PLATELET COUNT 304 K/MM3 (134-434); WHITE BLOOD COUNT 10.5 K/mm3 (4.0-10.0)
[2018-12-12 06:54] LABS: ALBUMIN 2.9 g/dl (3.4-5.0); BILIRUBIN,TOTAL 0.7 mg/dL (0.2-1); BLOOD UREA NITROGEN 13.5 mg/dL (7-18); CALCIUM 7.9 mg/dL (8.5-10.1); CREATININE 0.7 mg/dL (0.55-1.3); MAGNESIUM 2.3 mg/dL (1.8-2.4); PHOSPHOROUS 3.8 mg/dL (2.5-4.9); POTASSIUM 4.2 mmol/L (3.5-5.1); TOT PROT 6.4 g/dl (6.4-8.2)
[2018-12-12] MEDS ORDERED: APIXABAN 5 MG TABLET PO ONE (09:05)
[2018-12-12] MEDS: APIXABAN 5 MG TABLET PO SCH ×2 (09:15→21:16)
[2018-12-12] MEDS ORDERED: ACETAMINOPHEN 325 MG TABLET (FP) PO ONE (10:34)
[2018-12-12] MEDS ORDERED: ACETAMINOPHEN 325 MG TABLET (FP) ONE (10:36)
--- NOTE | 2018-12-12 12:38 | HOSP ---
Subjective - Review of Symptoms Subjective: c/o shoulder pain. started in his leg and then traveled all the way up to his arm. states this is how his CP started last year when he was requiring AV replacement and transferred to [facility]. also has sharp pain at the level of the diaphragm. denies fever, chills, cough, N/V/C/D, recent sick contacts. medication changes Current Medications Generic Name Dose Route Start Last Admin Trade Name Freq PRN Reason Stop Dose Admin Apixaban 5 mg 12/12/18 10:00 12/12/18 09:15 Eliquis - PO Not Given BID KEV Lacosamide 50 mg 12/12/18 12:45 Vimpat - PO BID KEV Levetiracetam 1,000 mg 12/12/18 05:45 12/12/18 09:16 Keppra - PO Not Given BID KEV Metoprolol Succinate 100 mg 12/13/18 10:00 Toprol Xl - PO DAILY KEV Last Vital Signs Temp Pulse Resp BP Pulse Ox 98.0 F 74 16 109/68 95 12/12/18 10:23 12/12/18 12:35 12/12/18 10:23 12/12/18 10:23 12/12/18 10:23 General NAD CV S1 S2 RRR no murmur/rub/gallop Lungs CTA B/L no wheezing/rales/ronchi Abdomen soft NT/ND Extremities +SLR on LLE. full ROM at the hip. L shoulder has full abduction/ adduction and rotation. no bone point tenderness CBCD WBC 10.5 K/mm3 (4.0-10.0) H 12/12/18 05:20 RBC 4.10 M/mm3 (4.00-5.60) 12/12/18 05:20 Hgb 12.6 GM/dL (11.7-16.9) 12/12/18 05:20 Hct 37.1 % (35.4-49) 12/12/18 05:20 MCV 90.3 fl (80-96) 12/12/18 05:20 MCHC 34.0 g/dl (32.0-35.9) 12/12/18 05:20 RDW 14.0 % (11.9-15.9) 12/12/18 05:20 Plt Count 304 K/MM3 (134-434) 12/12/18 05:20 MPV 8.5 fl (7.5-11.1) 12/12/18 05:20 CMP Sodium 139 mmol/L (136-145) 12/12/18 06:40 Potassium 4.2 mmol/L (3.5-5.1) 12/12/18 06:40 Chloride 107 mmol/L (98-107) 12/12/18 06:40 Carbon Dioxide 27 mmol/L (21-32) 12/12/18 06:40 Anion Gap 6 MMOL/L (8-16) L 12/12/18 06:40 BUN 13.5 mg/dL (7-18) 12/12/18 06:40 Creatinine 0.7 mg/dL (0.55-1.3) 12/12/18 06:40 Random Glucose 94 mg/dL (74-106) 12/12/18 06:40 Calcium 7.9 mg/dL (8.5-10.1) L 12/12/18 06:40 Total Bilirubin 0.7 mg/dL (0.2-1) 12/12/18 06:40 AST 15 U/L (15-37) 12/12/18 06:40 ALT 33 U/L (13-61) 12/12/18 06:40 Alkaline Phosphatase 82 U/L (45-117) 12/12/18 06:40 Total Protein 6.4 g/dl (6.4-8.2) 12/12/18 06:40 Albumin 2.9 g/dl (3.4-5.0) L 12/12/18 06:40 CARDIAC ENZYMES Creatine Kinase 137 U/L (26-308) 12/12/18 06:40 Troponin I 0.10 ng/ml (0.00-0.05) H 12/12/18 06:40 Assessment and Plan 43yo M with PMH seizures, HTN, Aortic Dilation, open AV repair, splenic V. thrombosis prsented to the ER with LLE pain radiating to his shoulder which he states is consistent with his previous episode and a multitude of vague complaints 1. Tropinemia- Trop 0.27 and down trending. received asa in the ER. not started on anticoagulation as no EKG changes. CTA evaluate for anerusym and dissection both of which were ruled out 2. LLE numbness- likely radiculopathy but can also consider CVA as also has intermittent LUE numbness. +SLR. can consider CT of lumbar spine to evaluate. already had CTA chest and abdomen. can see if images can be re-constructed to evaluate spine 3. CP- low concern cardiac in nature despite elevated troponin. no active cp now. martha trend troponins. Cardio consulted to evaluate and see if old records from last cath can be obtained 4. shoulder pain- has good ROM on passive movement. xr not showing any fracture. can have MRI if pain persists as outpatient 5. Leukocytosis- likely reactive. no signs of infection. CT likely showing atelectasis as pt has no difficulty breathing or cough. would hold abx 6. seizure- no reports of seizure like activity. cont home meds 7. spleenic vein thrombosis- Jak2 mutuation. on eliquis. claims compliance 8. HTN- controlled cont home medications 9. AV repair- imaging reviewed 10. DVT ppx- eliquis 11. spoke with present at bedside. in detail questions answered. Physical Examination Vital Signs: Vital Signs Temperature 98.0 F 12/12/18 10:23 Pulse Rate 74 12/12/18 12:35 Respiratory Rate 16 12/12/18 10:23 Blood Pressure 109/68 12/12/18 10:23 O2 Sat by Pulse Oximetry (%) 95 12/12/18 10:23 Labs: CBC, BMP 12/12/18 05:20 12/12/18 06:40
[2018-12-12] MEDS: LACOSAMIDE 50 MG TABLET PO SCH ×2 (13:48→21:16)
--- NOTE | 2018-12-12 16:10 | EKG ---
Test Reason : Blood Pressure : / mmHG Vent. Rate : 082 BPM Atrial Rate : 082 BPM P-R Int : 166 ms QRS Dur : 086 ms QT Int : 360 ms P-R-T Axes : 058 036 052 degrees QTc Int : 420 ms NORMAL SINUS RHYTHM POSSIBLE LEFT ATRIAL ENLARGEMENT NONSPECIFIC T WAVE ABNORMALITY ABNORMAL ECG WHEN COMPARED WITH ECG OF 18-MAY-2018 04:08, NO SIGNIFICANT CHANGE WAS FOUND Confirmed by AUTUMN CHESTER, GEORGINA ([id number]) on 12/12/2018 4:09:47 PM Referred By: Confirmed By:GEORGINA LEYVA MD
--- NOTE | 2018-12-12 16:31 | CON.CARD ---
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 Patient was accompanied by his who aided in providing HPI. Patient says he has spontaneous onset of sx's with out any exacerbating or reliving sx's, did not improve with acetaminophen. Aortic Root Sx was done at [facility] and records will be obtained. Pain has somewhat improved since visit [facility], and he is currently chest pain free. Full body pain begins in his LLE and radiates up through his thorax. Placing on telemetry. 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, Other (intracranial hemorrhage) Cardio/Vascular: Yes: Aneurysm, Aortic Insufficiency, HTN, Hyperlipdemia Heme/Onc: Yes: Hypercoaguable State - Alcohol/Substance Use Hx Alcohol Use: No - Smoking History Smoking history: Never smoked Have you smoked in the past 12 months: No - Social History Usual Living Arrangement: With Spouse ADL: Independent History of Recent Travel: No Home Medications - Allergies Allergies/Adverse Reactions: Allergies Allergy/AdvReac Type Severity Reaction Status Date / Time No Known Allergies Allergy Verified 05/18/18 06:55 - Home Medications Home Medications: Ambulatory Orders Apixaban [Eliquis] 5 mg PO BID 05/18/18 Metoprolol Succinate 100 mg PO DAILY 05/18/18 Lacosamide [Vimpat -] 50 mg PO BID 12/11/18 levETIRAcetam [Keppra -] 1,000 mg PO BID 12/11/18 Family Disease History - Family Disease History Family Disease History: Other: Mother (mild cognitive impairment, kidney stone) Review of Systems - Review of Systems Constitutional: denies: No Symptoms, Chills, Diaphoresis, Fever, Lethargy, Loss of Appetite, Malaise, Night Sweats, Unintentional Wgt. Loss, Weakness, Other Eyes: denies: No Symptoms, Blind Spots, Blurred Vision, Double Vision, Eye Pain , Floaters, Photophobia, Recent Change in Vision, Other HENT: denies: No Symptoms, Difficult Swallowing, Ear Discharge, Ear Pain, Epistaxis, Gingival Bleeding, Hearing Loss, Mouth Swelling, Nasal Congestion, Ocular Prosthesis, Throat Pain, Toothache, Ringing in Ears, Other Neck: denies: No Symptoms, Decreased ROM, Lumps, Pain on Movement, Stiffness, Swollen Glands, Tenderness, Other Cardiovascular: reports: Chest Pain. denies: No Symptoms, Edema, Palpitations, Shortness of Breath, Other Respiratory: denies: No Symptoms, Cough, Exercise Intolerance, Hemoptysis, Orthopnea, PND, Snoring, SOB, SOB on Exertion, Wheezing, Other Gastrointestinal: denies: No Symptoms, Abdominal Pain, Bloating, Constipation, Diarrhea, Dysphagia, Indigestion, Melena, Nausea, Rectal Bleeding, Vomiting, Vomiting Blood, Other Genitourinary: denies: No Symptoms, Burning, Discharge, Dysuria, Flank Pain, Frequency, Hematuria, Incontinence, Lesions, Menses, Pain, Testicular Mass, Testicular Pain, Testicular Swelling, Urgency, Vaginal Bleeding, Other Breasts: denies: No Symptoms Reported, See HPI, Breast Implants, Discharge from Nipple, Lumps, Pain, Skin Changes, Other Musculoskeletal: denies: No Symptoms, Back Pain, Crepitus, Decreased ROM, Extremity Pain, Joint Pain, Joint Swelling, Muscle Pain, Muscle Cramps, Muscle Weakness, Other Integumentary: denies: No Symptoms, Blister, Bruising, Change in Color, Eczema, Erythema, Incision, Lesions, Lump, Pallor, Pruritis, Rash, Wound, Other Neurological: reports: Numbness, Parasthesia, Weakness. denies: No Symptoms, Change in LOC, Change in Speech, Confusion, Dizziness, Headache, Incoordination , Pre-Existing Deficit, Seizure, Syncope, Tremors, Unsteady Gait, Other Endocrine: denies: No Symptoms, Excessive Sweating, Flushing, Increased Hunger, Increased Thirst, Intolerance to Cold, Intolerance to Heat, Unexplained Weight Gain, Unexplained Weight Loss, Other Hematology/Lymphatic: denies: No Symptoms, Easily Bruised, Excessive Bleeding, Swollen Glands, Other Psychiatric: denies: No Symptoms, Altered Sleep Pattern, Anxiety, Depression, Hallucinations, Panic, Paranoia, Suicidal, Other Vital Signs: Vital Signs Temperature 98.0 F 12/12/18 10:23 Pulse Rate 81 12/12/18 13:39 Respiratory Rate 18 12/12/18 13:39 Blood Pressure 102/69 12/12/18 13:39 O2 Sat by Pulse Oximetry (%) 97 12/12/18 13:39 Constitutional: Yes: No Distress, Calm Eyes: Yes: Conjunctiva Clear, EOM Intact, PERRL HENT: Yes: Atraumatic, Normocephalic Neck: Yes: Supple, Trachea Midline Respiratory: Yes: Regular, CTA Bilaterally Gastrointestinal: Yes: Normal Bowel Sounds, Soft. No: Distention, Tenderness Cardiovascular: Yes: Regular Rate and Rhythm. No: Bradycardia, Tachycardia, Pulse Irregular, Gallop, Rub, Varicosities JVD: No Carotid Bruit: No PMI: Non-Displaced Heart Sounds: Yes: S1, S2. No: Split S2, S3, S4, Clicks, Gallop, Rub, Bruit Murmur: Yes: Systolic Murmur, Grade 2. No: Diastolic Murmur Extremities: Yes: WNL Edema: No Peripheral Pulses WNL: Yes Integumentary: Yes: WNL Neurological: Yes: Alert, Oriented, Numbness Psychiatric: Yes: Alert, Oriented - Other Data Labs, Other Data: CBC, BMP 12/12/18 05:20 12/12/18 06:40 INR, PTT INR 1.45 (0.83-1.09) H 12/11/18 23:24 Troponin, BNP 12/11/18 12/12/18 12/12/18 23:24 02:40 06:40 Troponin I 0.27 H 0.15 H 0.10 H Troponin, BNP 12/11/18 12/12/18 12/12/18 23:24 02:40 06:40 Troponin I 0.27 H 0.15 H 0.10 H nsr 82bpm, nsst, lae Echo: Report Reviewed Imaging - Results Chest X-ray: Report Reviewed, Image Reviewed Cat Scan: Report Reviewed EKG: Report Reviewed, Image Reviewed Assessment/Plan R/o ACS -troponin minimally elevated and trended down with normal CK level -no sig chest pain, only mild pleuritic chest pain with deep inspiration -ekg no ischemia -Cardiac cath 08/05/17 at [facility] showed normal coronary arteries -ACS is unlikely -no need for additional ischemic evaluation at this time 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
[2018-12-12 23:34] VITALS: BMI 25.9
[2018-12-13] MEDS: ACETAMINOPHEN 325 MG TABLET (FP) PO PRN ×2 (01:48→11:45)
[2018-12-13] MEDS ORDERED: PT OWN MED DRAWER 7, Y5N ONE (08:57)
[2018-12-13] MEDS: APIXABAN 5 MG TABLET PO SCH (09:03)
[2018-12-13] MEDS: LACOSAMIDE 50 MG TABLET PO SCH (09:04)
[2018-12-13] MEDS ORDERED: LEVETIRACETAM 1000 MG PO SCH ×2 (10:00)
--- NOTE | 2018-12-13 16:22 | PN ---
Progress Note, Physician History of Present Illness: pt seen and examined today in nad. continued L shoulder pain improved for short time with tylenol. overnight states his LLE was very numb and felt cold compared to his RLE - Current Medication List Current Medications: Active Medications Acetaminophen (Tylenol -) 650 mg PO Q6H PRN PRN Reason: Fever Or Pain Last Admin: 12/13/18 11:45 Dose: 650 mg Apixaban (Eliquis -) 5 mg PO BID [facility] Last Admin: 12/13/18 09:03 Dose: 5 mg Lacosamide (Vimpat -) 50 mg PO BID [facility] Last Admin: 12/13/18 09:04 Dose: 50 mg Metoprolol Succinate (Toprol Xl -) 100 mg PO DAILY [facility] Last Admin: 12/13/18 09:04 Dose: 100 mg Levetiracetam 1000 (Mg Tablet) 1 each PO BID [facility] Last Admin: 12/13/18 09:04 Dose: 1 each - Objective Vital Signs: Vital Signs Temperature 98.6 F 12/13/18 13:20 Pulse Rate 70 12/13/18 13:20 Respiratory Rate 18 12/13/18 13:20 Blood Pressure 112/65 12/13/18 13:20 O2 Sat by Pulse Oximetry (%) 95 12/13/18 12:00 Constitutional: Yes: No Distress, Calm Eyes: Yes: Conjunctiva Clear, EOM Intact, PERRL HENT: Yes: Atraumatic, Normocephalic Neck: Yes: Supple, Trachea Midline Cardiovascular: Yes: Regular Rate and Rhythm, Murmur, S1, S2. No: Bradycardia, Tachycardia, Pulse Irregular, Bruit, JVD, Gallop, Rub, S3, S4, Varicosities Respiratory: Yes: Regular. No: Rales, Rhonchi, SOB, Wheezes Gastrointestinal: Yes: Normal Bowel Sounds, Soft. No: Distention, Tenderness Extremities: Yes: WNL Edema: No Peripheral Pulses WNL: Yes Neurological: Yes: Alert, Oriented Psychiatric: Yes: Alert, Oriented Labs: CBC, BMP 12/12/18 05:20 12/12/18 06:40 INR, PTT INR 1.45 (0.83-1.09) H 12/11/18 23:24 - ....Imaging Chest X-ray: Report Reviewed, Image Reviewed EKG: Report Reviewed, Image Reviewed Other: Report Reviewed, Image Reviewed (tele-nsr, artifact, no sig arrhythmias) Assessment/Plan R/o ACS -troponin minimally elevated and trended down with normal CK level -no sig chest pain, only mild pleuritic chest pain with deep inspiration -ekg no ischemia -Cardiac cath 08/05/17 at [facility] showed normal coronary arteries -ACS is unlikely -no need for additional ischemic evaluation at this time H/o Thoracic aortic aneursym and BAV s/p Asc Root repair and bio AVR 09/03/17 at [facility] -CTA chest/abd was done showing no aneursym and no dissection L leg and L arm numbness -pt reports h/o a slow intracranial hemorrhage as per his neurologist -CT head no acute process -CT spine was done results pending -fup CT and consider neuro evaluation if needed Hypercoagulable state-ROSARIO 2 mutation -has been on eliquis for this No additional inpatient cardiac work up is needed at this time. Will see patient as needed. [facility] close follow up as outpatient.
--- NOTE | 2018-12-13 17:38 | PN ---
Teaching Attending Note Name of Resident: Mireya Wright ATTENDING PHYSICIAN STATEMENT I saw and evaluated the patient. I reviewed the resident's note and discussed the case with the resident. I agree with the resident's findings and plan as documented. SUBJECTIVE:continues to have shoulder pain. states numbness in hand/LLE and CP has resolved. did have episode of LLE numbness that improved with calf massage. denies CP, SOB, fever, chills, N/V/c/D, blurred vision OBJECTIVE: Last Vital Signs Temp Pulse Resp BP Pulse Ox 98.6 F 70 18 112/65 95 12/13/18 13:20 12/13/18 13:20 12/13/18 13:20 12/13/18 13:20 12/13/18 12:00 General NAD CV no chest wall tenderness Extremities + L muscular tenderness of supraspinatus. good active and passive ROM of the LUE, no numbness in the L hand ASSESSMENT AND PLAN: 43yo M with PMH seizures, HTN, Aortic Dilation, open AV repair, splenic V. thrombosis prsented to the ER with LLE pain radiating to his shoulder which he states is consistent with his previous episode and a multitude of vague complaints 1. Tropinemia- Trop 0.27 no assoc CP. CTA r/o dissection/aneruysm. had normal cath last year per cardiology. 2. LLE numbness- likely radiculopathy vs muscular pain. offered muscle relaxer but pt declined. states he does not want PT as it has not worked in the past. recommend patient to f/u with PMD nad has appt to see neuro to who can consider nerve conduction study as outpatient. Resident spoke with radiologist who states that C-spine and lumbar negative. 3. CP- low concern cardiac in nature despite elevated troponin. now resolved 4. shoulder pain- likely muscular. refuse offer of muscle relaxer. has good ROM on passive movement. xr not showing any fracture. can have MRI if pain persists as outpatient 5. Leukocytosis- likely reactive. trended down. no signs of infection. CT likely showing atelectasis as pt has no difficulty breathing or cough. would hold abx 6. seizure- no reports of seizure like activity. cont home meds 7. spleenic vein thrombosis- Jak2 mutuation. on eliquis. claims compliance 8. HTN- controlled cont home medications 9. AV repair- imaging reviewed 10. DVT ppx- eliquis 11. spoke with present at bedside. in detail questions answered. d/c home
[2018-12-13 18:02] VITALS: BP 122/79; PULSE 87; TEMP 98.4
--- NOTE | 2018-12-13 18:07 | DS ---
Physical Exam: SUBJECTIVE: Patient seen and examined at bedside. pt is still complaining of L shoulder pain. pt denies cp, palpitations, n/v. OBJECTIVE: Vital Signs Period Temp Pulse Resp BP Sys/[place] Pulse Ox Last 24 Hr 97.2 F-98.6 F 68-82 15-20 108-127/65-88 95-98 PHYSICAL EXAM GENERAL: The patient is awake, alert, and fully oriented, in no acute distress. HEAD: Normal with no signs of trauma. LUNGS: Breath sounds equal, clear to auscultation bilaterally, no wheezes, no crackles, no accessory muscle use. HEART: Regular rate and rhythm, S1, S2 without murmur, rub or gallop. ABDOMEN: Soft, nontender, nondistended, normoactive bowel sounds EXTREMITIES: 2+ pulses, warm, well-perfused, no edema. SKIN: Warm, dry, normal turgor, no rashes or lesions noted. LABS HOSPITAL COURSE: Date of Admission:12/12/18 43yo M with PMH seizures, HTN, Aortic Dilation, open AV repair, splenic V. thrombosis prsented to the ER with LLE pain radiating to his shoulder which he states is consistent with his previous episode and a multitude of vague complaints. On admission, pt had tropinemia which downtrended from 0.27 to 0.1. Pt received Asa in ED. CTA was done to evaluate for anerusym and dissection both of which were ruled out. Cardiology followed the patient . The pt was on cardiac monitoring with no acute events. For the pt shoulder pain, the pt has good ROM, XR was negative for fracture. if the pain persists, the pt can see PCP for MRI. The pt should continue his home medications as prescribed. Pt should f/u w/ pcp in 1 week Date of Discharge: 12/13/18 Minutes to complete discharge: 36 Discharge Summary Reason For Visit: ELEVATED TROPONIN LEVEL, CHEST PAIN Current Active Problems Aortic root dilatation (Acute) Cardiac enzymes elevated (Acute) Pain of left side of body (Acute) Shoulder pain (Acute) Condition: Good - Instructions Diet, Activity, Other Instructions: You were admitted to the hospital for chest pain and shoulder pain. In the hospital your heart was monitored. You had a CTA of your abdomen, CT of your head, Ultrasound of your abdomen, CT of your chest, XRAY of your abdomen and shoulder, and CT of your spine - all of which resulted in normal findings. Please continue to take your home medications as prescribed. -Please follow up with your Primary care physician in 1 week to monitor your improvement. If your symptoms persist, your primary care physician can proceed with an MRI/ You are being discharged home. continue your home medications. Please return to the ER if you have any signs or symptoms of chest pain, shortness of breath, uncontrollable fever, chills, nausea, vomiting, numbness, tingling, or weakness in any part of your body, changes in vision, or slurred speech. Please return to the ER if symptoms persist, worsen, or new symptoms arise. Disposition: HOME - Home Medications Comprehensive Discharge Medication List: Ambulatory Orders Apixaban [Eliquis] 5 mg PO BID 05/18/18 Metoprolol Succinate 100 mg PO DAILY 05/18/18 Lacosamide [Vimpat -] 50 mg PO BID 12/11/18 levETIRAcetam [Keppra -] 1,000 mg PO BID 12/11/18 This patient is new to me today: Yes Date on this admission: 12/13/18 Emergency Visit: No Critical Care patient: No - Discharge Referral Referred to [facility] Med P.C.: No ATTENDING PHYSICIAN STATEMENT I saw and evaluated the patient. I reviewed the resident's note and discussed the case with the resident. I agree with the resident's findings and plan as documented. SUBJECTIVE: OBJECTIVE: ASSESSMENT AND PLAN:
== END 2018-12-13 18:45 | disposition home or self-care (01) ==
LOC: JER 19:19 → JERBED 12-12 03:22 → J4S 12-12 20:43
PROVIDERS: ADMIT Internal Medicine; ATTEND Internal Medicine
PROC: 3E033GC Introduction of Other Therapeutic Substance into Peripheral Vein, Percutaneous Approach (ICD-10-PCS; principal; 2018-12-12)
DX: R77.8 Other specified abnormalities of plasma proteins (principal); I77.810 Thoracic aortic ectasia; I10 Essential (primary) hypertension; G40.909 Epilepsy, unspecified, not intractable, without status epilepticus; M54.9 Dorsalgia, unspecified; G89.29 Other chronic pain; R07.89 Other chest pain; N13.2 Hydronephrosis with renal and ureteral calculous obstruction; M25.511 Pain in right shoulder; R20.0 Anesthesia of skin; D72.829 Elevated white blood cell count, unspecified; Z86.79 Personal history of other diseases of the circulatory system; Z79.01 Long term (current) use of anticoagulants; Z95.2 Presence of prosthetic heart valve; Z86.718 Personal history of other venous thrombosis and embolism
CPT/HCPCS: 36415; 70450-TC; 71275-TC; 72125-TC; 72131-TC; 73030-TC-LT-FY; 74018-TC-FY; 74175-TC; 76700-TC; 80053; 80061; 82550; 82553; 82607; 83036; 83721; 83735; 84100; 84443; 84484; 85025; 85610; 85651; 85730; 86140; 93005; 93010; 93971-TC; 93976; 99285-25; G0378; J7030

== ENCOUNTER 2019-04-04 01:52 | Emergency (ER) | payer BC, OTHER ==
--- NOTE | 2019-04-04 01:15 | PDOC ---
Attending Attestation - Resident Resident Name: Mireya Wright - ED Attending Attestation I have performed the following: I have examined & evaluated the patient, The case was reviewed & discussed with the resident, I agree w/resident's findings & plan - HPI HPI: 04/04/19 02:11 see resident hpi - Physicial Exam PE: 04/04/19 02:11 agree with resident exam - Medical Decision Making 04/04/19 02:12 43-year-old male with chest pain and associated diaphoresis with history of aortic root dilatation and thoracic aortic aneurysm Patient set up for stat transfer to [facility] emergency department due to his physicians being on staff there, lack of on-call cardiothoracic surgery in- house as well as inability to get prompt blood chemistries due to lab issues in- house Patient and have consented to transfer Patient accepted by cardiology and will be transferred to the emergency department for stat labs and imaging
[2019-04-04 01:40] LABS: BASO % 0.6 % (0-2.0); EOS % 2.6 % (0-4.5); HEMATOCRIT 40.2 % (35.4-49); LYMPH % 13.6 % (8-40); MCH 30.8 pg (25.7-33.7); MEAN CELL VOLUME 88.1 fl (80-96); MEAN PLT VOLUME 8.7 fl (7.5-11.1); MONO % 10.6 % (3.8-10.2); NEUT % 72.6 % (42.8-82.8); PLATELET COUNT 299 K/MM3 (134-434); RBC 4.56 M/mm3 (4.00-5.60); WHITE BLOOD COUNT 12.5 K/mm3 (4.0-10.0)
[2019-04-04 01:43] VITALS: TEMP 98.8; BMI 26.3
--- NOTE | 2019-04-04 01:50 | PDOC ---
History of Present Illness <Beth Fraser - Last Filed: 04/04/19 02:05> - General History Source: Patient, Spouse - History of Present Illness Initial Comments: 04/04/19 01:45 EST 43 yo M with PMH of Epilepsy, Thoracic aortic aneursym and BAV s/p Asc Root repair and bio AVR 09/03/[address] 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 Patient was accompanied by his who aided in providing HPI. Patient states that he is having L sided stabbing 10/10 CP that radiates to his back. he states that this has been constant since it began yesterday. He also is having decreased appetite and abdominal pain. HE states the pain is slightly improved with tylenol. denies nausea / vomiting. denies headache. denies smoking or alcohol use. 04/04/19 02:05 <Mireya Wright - Last Filed: 04/04/19 02:17> - General Chief Complaint: Chest Pain Stated Complaint: CHEST PAIN AND FEVER Time Seen by Provider: 04/04/19 01:14 EST Past History <Beth Fraser - Last Filed: 04/04/19 02:05> - Past Medical History Cardiac Disorders: Yes (aortic anneurysm, aortic valve repair) COPD: No DVT: No Seizures: Yes - Surgical History Cardiac Surgery: Yes (avr aortic root surgery) - Immunization History Immunization Up to Date: Yes - Psycho Social/Smoking Cessation Hx Smoking History: Never smoked Have you smoked in the past 12 months: No Hx Alcohol Use: No Drug/Substance Use Hx: No Substance Use Type: None Hx Substance Use Treatment: No <Mireya Wright - Last Filed: 04/04/19 02:17> - Past Medical History Allergies/Adverse Reactions: Allergies Allergy/AdvReac Type Severity Reaction Status Date / Time No Known Allergies Allergy Verified 05/18/18 06:55 Home Medications: Ambulatory Orders Apixaban [Eliquis] 5 mg PO BID 05/18/18 Metoprolol Succinate 100 mg PO DAILY 05/18/18 Lacosamide [Vimpat -] 50 mg PO BID 12/11/18 levETIRAcetam [Keppra -] 1,000 mg PO BID 12/11/18 Review of Systems - Review of Systems Able to Perform ROS?: Yes Constitutional: Yes: Diaphoresis, Fever HEENTM: Yes: Difficulty Swallowing Respiratory: Yes: Shortness of Breath. No: Cough Cardiac (ROS): Yes: Chest Pain ABD/GI: Yes: Poor Appetite. No: Constipated, Diarrhea, Nausea, Vomiting : No: Dysuria Musculoskeletal: Yes: Back Pain Neurological: No: Headache <Mireya Wright - Last Filed: 04/04/19 02:17> *Physical Exam - Vital Signs Last Vital Signs Temp Pulse Resp BP Pulse Ox 98.8 F 73 20 111/78 95 04/04/19 01:52 EST 04/04/19 01:52 EST 04/04/19 01:52 EST 04/04/19 01:52 EST 04/04/19 01:52 EST <Beth Fraser - Last Filed: 04/04/19 02:05> - Vital Signs Last Vital Signs Temp Pulse Resp BP Pulse Ox 98.8 F 73 20 111/78 95 04/04/19 01:52 EST 04/04/19 01:52 EST 04/04/19 01:52 EST 04/04/19 01:52 EST 04/04/19 01:52 EST - Physical Exam General Appearance: Yes: Nourished, Appropriately Dressed, Mild Distress HEENT: positive: EFRAIN, Normal Voice, Pharynx Normal. negative: Pharyngeal Erythema Neck: positive: Supple. negative: Lymphadenopathy (R), Lymphadenopathy (L) Respiratory/Chest: positive: Lungs Clear, Normal Breath Sounds. negative: Respiratory Distress, Accessory Muscle Use, Crackles, Rales, Wheezing Cardiovascular: positive: Regular Rhythm, Regular Rate, S1, S2. negative: JVD Gastrointestinal/Abdominal: positive: Normal Bowel Sounds, Soft. negative: Tender, Pulsatile Mass, Distended Musculoskeletal: positive: Normal Inspection Extremity: positive: Normal Inspection Integumentary: positive: Normal Color, Dry, Warm, Diaphoresis Neurologic: positive: Fully Oriented <Mireya Wright - Last Filed: 04/04/19 02:17> ED Treatment Course - LABORATORY CBC & Chemistry Diagram: 04/04/19 01:28 EST 04/04/19 01:28 EST - ADDITIONAL ORDERS Additional order review: 04/04/19 01:28 EST RBC 4.56 MCV 88.1 MCHC 35.0 RDW 13.0 MPV 8.7 Neutrophils % 72.6 Lymphocytes % 13.6 D Monocytes % 10.6 H Eosinophils % 2.6 D Basophils % 0.6 <Beth Fraser - Last Filed: 04/04/19 02:05> - LABORATORY CBC & Chemistry Diagram: 04/04/19 01:28 EST 04/04/19 01:28 EST - ADDITIONAL ORDERS Additional order review: 04/04/19 01:28 EST RBC 4.56 MCV 88.1 MCHC 35.0 RDW 13.0 MPV 8.7 Neutrophils % 72.6 Lymphocytes % 13.6 D Monocytes % 10.6 H Eosinophils % 2.6 D Basophils % 0.6 - RADIOLOGY Radiology Studies Ordered: Category Date Time Status CHEST X-RAY PORTABLE* [RAD] Stat Radiology 04/04/19 01:14 Ordered <Mireya Wright - Last Filed: 04/04/19 02:17> Medical Decision Making - Medical Decision Making 04/04/19 02:13 43 yo M p/w CP radiating to back -r/o Aortic dissection -r/o ACS -CBC, CMP -cardiac enzymes -EKG reviewed, unchanged from prior -CT from 11/2018 reviewed. -rpt CT chest -continue cardiac monitoring -CXR Transfer to [facility] as lab unable to process trops, no CT surgery at this site. <Mireya Wright - Last Filed: 04/04/19 02:17> Discharge - Discharge Information Problems reviewed: Yes - Transfer to Acute Care Facility Receiving Facility Name: [facility] Accepting Physician:: Dr. Wakefield, Dr. Camacho <Beth Frsaer - Last Filed: 04/04/19 02:05> <Mireya Wright - Last Filed: 04/04/19 02:17> - Discharge Information Clinical Impression/Diagnosis: Chest pain Qualifiers: Chest pain type: unspecified Qualified Code(s): R07.9 - Chest pain, unspecified Condition: Guarded Disposition: TRANSFER ACUTE CARE/OTHER HOSP - Follow up/Referral Referrals: Eros Valadez [Primary Care Provider] - - Patient Discharge Instructions - Post Discharge Activity
[2019-04-04 02:31] VITALS: BP 105/82; PULSE 75
[2019-04-04 06:44] LABS: CHLORIDE 103 mmol/L (98-107); CO2 25 mmol/L (21-32); CREATININE 0.8 mg/dL (0.55-1.3); GLUCOSE,RANDOM 115 mg/dL (74-106); PHOSPHOROUS 3.9 mg/dL (2.5-4.9); POTASSIUM 4.5 mmol/L (3.5-5.1); SODIUM 137 mmol/L (136-145)
[2019-04-04 06:45] LABS: ALBUMIN 3.4 g/dl (3.4-5.0); ALK PHOS 87 U/L (45-117); BILIRUBIN,TOTAL 0.4 mg/dL (0.2-1); MAGNESIUM 2.1 mg/dL (1.8-2.4); SGOT/AST 32 U/L (15-37); SGPT/ALT 36 U/L (13-61); TOT PROT 6.6 g/dl (6.4-8.2)
--- NOTE | 2019-04-05 10:17 | EKG ---
Test Reason : Blood Pressure : / mmHG Vent. Rate : 075 BPM Atrial Rate : 075 BPM P-R Int : 170 ms QRS Dur : 086 ms QT Int : 380 ms P-R-T Axes : 055 030 046 degrees QTc Int : 424 ms NORMAL SINUS RHYTHM POSSIBLE LEFT ATRIAL ENLARGEMENT NONSPECIFIC T WAVE ABNORMALITY ABNORMAL ECG WHEN COMPARED WITH ECG OF 11-DEC-2018 19:25, NO SIGNIFICANT CHANGE WAS FOUND Confirmed by SATNAM PARHAM MD ([id number]) on 04/05/2019 10:16:46 AM Referred By: Confirmed By:SATNAM PARHAM MD
== END 2019-04-04 02:33 | disposition short-term general hospital (02) ==
LOC: JER 01:52
DX: R07.9 Chest pain, unspecified (principal); G40.909 Epilepsy, unspecified, not intractable, without status epilepticus; D73.5 Infarction of spleen; Z79.01 Long term (current) use of anticoagulants; Z86.79 Personal history of other diseases of the circulatory system; Z95.4 Presence of other heart-valve replacement
CPT/HCPCS: 36415; 71045-TC-FY; 80053; 82550; 83735; 84100; 84484; 85025; 93005; 93010; 99284-25

== ENCOUNTER 2020-06-15 07:59 | Emergency (ER) | payer BC, OTHER ==
[2020-06-15 08:07] VITALS: BP 144/93; PULSE 75; BMI 28.2
[2020-06-15 08:08] VITALS: TEMP 98
[2020-06-15] MEDS ORDERED: ACETAMINOPHEN 500 MG TABLET (FP) PO ONE (10:36)
[2020-06-15] MEDS ORDERED: ACETAMINOPHEN 325 MG TABLET (FP) ONE (11:14)
== END 2020-06-15 11:10 | disposition home or self-care (01) ==
LOC: JER 07:59
DX: M79.605 Pain in left leg (principal)
CPT/HCPCS: 73590-TC-LT-FY; 93971-TC; 99284-25

== ENCOUNTER 2022-12-13 02:37 | Emergency (ER) | payer BC ==
[2022-12-13 02:42] VITALS: RESP 18; BMI 25.7
[2022-12-13] MEDS ORDERED: SODIUM CHLORIDE 0.9% 500 ML INFUS.BAG IV ONE (04:07)
[2022-12-13] MEDS ORDERED: ONDANSETRON 4 MG/2 ML VIAL IVPUSH ONE (04:07)
[2022-12-13] MEDS ORDERED: METOCLOPRAMIDE HCL INJECTION 10 MG/2 ML VIAL IVPUSH ONE (04:07)
[2022-12-13] MEDS ORDERED: ACETAMINOPHEN 1000 MG/100 ML BAG IVPB ONE (04:07)
[2022-12-13] MEDS ORDERED: BISMUTH SUBSALICYLATE 524 MG/30 ML PO ONE (04:13)
[2022-12-13] MEDS ORDERED: ACETAMINOPHEN INJECTION 100 ML IVPB ONE (04:39)
[2022-12-13] MEDS ORDERED: METOCLOPRAMIDE HCL INJECTION 10 MG/2 ML VIAL ONE (04:39)
[2022-12-13 05:22] LABS: BASO % 0.2 % (0-2.0); HEMATOCRIT 44.4 % (35.4-49); LYMPH % 6.6 % (8-40); MCH 29.3 pg (25.7-33.7); MCHC 33.7 g/dl (32.0-35.9); MEAN PLT VOLUME 8.9 fl (7.5-11.1); MONO % 6.6 % (3.8-10.2); NEUT % 86.6 % (42.8-82.8); PLATELET COUNT 194 10^3/uL (134-434); RDW 12.8 % (11.9-15.9)
[2022-12-13 05:46] LABS: POTASSIUM 3.4 mmol/L (3.5-5.1)
[2022-12-13 05:48] LABS: CALCIUM 8.2 mg/dL (8.5-10.1)
[2022-12-13 05:49] LABS: ALBUMIN 3.4 g/dl (3.4-5.0); BLOOD UREA NITROGEN 14.2 mg/dL (7-18)
[2022-12-13 05:53] LABS: BILIRUBIN,TOTAL 0.4 mg/dL (0.2-1); TOT PROT 6.7 g/dl (6.4-8.2)
[2022-12-13 06:31] LABS: PH,URINE 5.5 (5.0-8.0); URINE APPEARANCE CLEAR; URINE BILIRUBIN NEGATIVE (NEGATIVE); URINE COLOR YELLOW; URINE GLUCOSE (UA) NEGATIVE (NEGATIVE); URINE KETONE 1+ (NEGATIVE); URINE LEUK ESTERASE NEGATIVE (NEGATIVE); URINE NITRITE NEGATIVE (NEGATIVE); URINE PROTEIN TRACE (NEGATIVE); URINE UROBILINOGEN 0.2 mg/dL (0.2-1.0)
[2022-12-13 07:03] VITALS: BP 116/76; PULSE 88; TEMP 99.2
== END 2022-12-13 07:39 | disposition home or self-care (01) ==
LOC: JER 02:37
PROC: 3E033NZ Introduction of Analgesics, Hypnotics, Sedatives into Peripheral Vein, Percutaneous Approach (ICD-10-PCS; principal; 2022-12-13)
PROC: 3E033GC Introduction of Other Therapeutic Substance into Peripheral Vein, Percutaneous Approach (ICD-10-PCS; 2022-12-13)
DX: R50.9 Fever, unspecified (principal); R19.7 Diarrhea, unspecified; R10.11 Right upper quadrant pain
CPT/HCPCS: 36415; 80053; 81003; 83605; 83690; 85025; 87086; 99284-25